=== PATIENT | male | born 1940 | race Caucasian/White ===

== ENCOUNTER → 2017-04-09 | Outpatient (CLI) | payer BC ==
[2015-10-03 11:45] VITALS: BP 156/82
[~2017-04-09] MED LIST: LOSA100T6 PO; TAMS0.4C97 PO
--- NOTE | 2017-04-09 15:26 | KCIC ---
HIP RIGHT 2 VIEW Indication: Right hip pain for 2 weeks. . Comparison: No comparison is available. FINDINGS: No acute fracture. No bone destruction. No dislocation. Mild subchondral sclerosis at the pubic symphysis could be degenerative or related osteitis pubis. IMPRESSION: No acute fracture or dislocation. Electronically signed by: Michael Corral MD (04/09/2017 3:23 PM) [facility]
--- NOTE | 2017-04-09 15:30 | KCIC ---
LUMBAR SPINE 2-3V Indication: Low back pain. Dropped foot for 2 weeks. . Comparison: No comparison is available. FINDINGS: Degenerative disc disease with marginal spurring and loss of disc height, greatest at L2-3, L4-5 and L5-S1. There appear to be 5 lumbar type nonrib-bearing vertebral bodies. Mild anterior subluxation of L3 on L4 and mild left lateral subluxation of L2 on L3, likely degenerative. No evidence of acute fracture or aggressive bone destruction. Surgical clips identified in the right abdomen. IMPRESSION: Lumbar spondylosis. No evidence of acute fracture. Electronically signed by: Michael Corral MD (04/09/2017 3:27 PM) [facility]
== END | disposition home or self-care (01) ==
LOC: KCIC 14:15
PROVIDERS: ATTEND Nurse Practitioner Family
DX: M21.372 Foot drop, left foot (principal); M47.896 Other spondylosis, lumbar region; M51.36 Other intervertebral disc degeneration, lumbar region; M51.37 Other intervertebral disc degeneration, lumbosacral region; M25.551 Pain in right hip
CPT/HCPCS: 72100; 73502

== ENCOUNTER → 2017-11-07 | Outpatient (CLI) | payer BC | END | disposition home or self-care (01) | LOC: RT 11:33 | DX: I10 Essential (primary) hypertension (principal); E78.5 Hyperlipidemia, unspecified; E78.00 Pure hypercholesterolemia, unspecified; J44.9 Chronic obstructive pulmonary disease, unspecified; K21.9 Gastro-esophageal reflux disease without esophagitis | CPT/HCPCS: 94618 ==

== ENCOUNTER 2019-10-13 14:44 | Inpatient (IN) | payer OTHER, MEDICAID ==
[~2019-10-13] VITALS: Ht 184.2 cm; Wt 96.1 kg
[~2019-10-13 14:44] MED LIST changes: +Aspirin PO; +Flomax PO; +LOSA100T14 PO; -LOSA100T6 PO; +Losartan PO; +Ranitidine PO; +Vitamin PO
--- NOTE | 2019-10-13 15:12 | PHYS DOC ---
Past Medical History Past Medical History: COPD, High Cholesterol, Hypertension Past Surgical History: Tonsillectomy Smoking Status: Never Smoker Alcohol Use: Heavy Drug Use: None General Adult EDM: Chief Complaint: CHEST PAIN HPI: HPI: 79-year-old male significant history of hypertension, hyperlipidemia, who presents for evaluation of chest pain. The patient reports onset of chest pain with exertion while weed eating his yard just prior to arrival. The patient rested and his chest pain improved. He again exert himself, resulting in recurrent chest pain, again resolved with rest. Associated mild dyspnea. No known history of coronary artery disease or prior history of thromboembolic disease. Review of Systems: Review of Systems: Gen: No fever, chills. Eyes: No blurred vision, diplopia. ENT: No nasal congestion, sore throat. CV: Reports chest pain. Resp. No cough. Reports dyspnea. GI: No abd pain, N/V. : No dysuria, hematuria. Neuro: No CASTRO, dizziness, weakness. MSK: No myalgia, arthralgia, back pain. Skin: No acute rash or lesion. Heart Score: HEART Score for Chest Pain: HEART Score for Chest Pain Response (Comments) Value History Highly Suspicious 2 ECG Normal 0 Age > 65 2 Risk Factors >3 Risk Factors or Hx CAD 2 Troponin < Normal Limit 0 Total 6 Risk Factors: Risk Factors: DM, Current or recent (<one month) smoker, HTN, HLP, family history of CAD, obesity. Risk Scores: Score 0 - 3: 2.5% MACE over next 6 weeks - Discharge Home Score 4 - 6: 20.3% MACE over next 6 weeks - Admit for Clinical Observation Score 7 - 10: 72.7% MACE over next 6 weeks - Early Invasive Strategies Allergies: Allergies: Allergies Coded Allergies Type Severity Reaction Last Updated Verified No Known Drug Allergies 09/30/15 No Physical Exam: PE: Gen: NAD. Head: NC/AT. Eyes: No scleral icterus. No conjunctival injection. ENT: MMM. Posterior OP clear. Neck: Supple. NT. No JVD. CV: RRR. Peripheral pulses intact. Resp: CTAB. Abd: Soft. NT. ND. MSK: No peripheral cyanosis. No edema. No calf tenderness or asymmetry. Neuro: Awake and alert. Skin. Warm. Dry. Psych: Appropriate mood & affect. Current Patient Data: Labs: Laboratory Tests Test 10/13/19 15:02 White Blood Count 9.3 x10^3/uL (4.0-11.0) Red Blood Count 4.37 x10^6/uL (4.30-5.70) Hemoglobin 15.2 g/dL (13.0-17.5) Hematocrit 42.9 % (39.0-53.0) Mean Corpuscular Volume 98 fL (79-100) Mean Corpuscular Hemoglobin 35 pg (25-35) Mean Corpuscular Hemoglobin Concent 35 g/dL (31-37) Red Cell Distribution Width 13.5 % (11.5-14.5) Platelet Count 238 x10^3/uL (140-400) Neutrophils (%) (Auto) 66 % (31-73) Lymphocytes (%) (Auto) 25 % (24-48) Monocytes (%) (Auto) 8 % (0-9) Eosinophils (%) (Auto) 1 % (0-3) Basophils (%) (Auto) 1 % (0-3) Neutrophils # (Auto) 6.2 x10^3/uL (1.8-7.7) Lymphocytes # (Auto) 2.3 x10^3/uL (1.0-4.8) Monocytes # (Auto) 0.7 x10^3/uL (0.0-1.1) Eosinophils # (Auto) 0.1 x10^3/uL (0.0-0.7) Basophils # (Auto) 0.1 x10^3/uL (0.0-0.2) Prothrombin Time 13.9 SEC (11.7-14.0) Prothromb Time International Ratio 1.1 (0.8-1.1) Activated Partial Thromboplast Time 25 SEC (24-38) Sodium Level 138 mmol/L (136-145) Chloride Level 104 mmol/L (98-107) Carbon Dioxide Level 27 mmol/L (21-32) Anion Gap 7 (6-14) Blood Urea Nitrogen 21 mg/dL (8-26) Estimated GFR (Cockcroft-Gault) 64.4 BUN/Creatinine Ratio 19 (6-20) Glucose Level 93 mg/dL (70-99) Calcium Level 8.7 mg/dL (8.5-10.1) Total Bilirubin 0.4 mg/dL (0.2-1.0) Aspartate Amino Transf (AST/SGOT) 25 U/L (15-37) Alkaline Phosphatase 53 U/L (46-116) Troponin I Quantitative < 0.017 ng/mL (0.000-0.055) Total Protein 6.9 g/dL (6.4-8.2) Albumin 3.4 g/dL (3.4-5.0) Albumin/Globulin Ratio 1.0 (1.0-1.7) EKG: EKG: [] EKG at 1448. Sinus rhythm. Heart rate 58. Incomplete right bundle branch block morphology. Diffuse nonspecific STT changes. No STEMI. Interpreted by me. Radiology/Procedures: Radiology/Procedures: Examination: PORTABLE CHEST 1V History: Reason: CP / Spl. Instructions: / History: Comparison/Correlation: 09/30/2015 portable chest x-ray exam Findings: Portable upright frontal view chest was obtained. Heart size and vasculature are normal. No pneumothorax. Minimal interstitial thickening at the lung bases noted. No dense consolidation. Bony structures are unremarkable. Impression: No focal infiltrate. No significant change. Electronically signed by: German Craig MD (10/13/2019 3:25 PM) [id number] Course & Med Decision Making: Course & Med Decision Making Pertinent Labs and Imaging studies reviewed. (See chart for details) In summary, 79M with PMH of HTN, HL, p/w exertional CP x2, improved with rest. Remains CP free. EKG without acute injury pattern. Labs unrevealing. Initial trop neg. 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 Remains HDS. Will admit obs tele. Dragon Disclaimer: Draglayla Disclaimer: This electronic medical record was generated, in whole or in part, using a voice recognition dictation system. Departure Departure Impression: Primary Impression: Chest pain Disposition: ADMITTED INPATIENT Admitting Physician: ELI (Jinny) Condition: STABLE Referrals: APRIL MARTINEZ MD (PCP) Justicifation of Admission Dx: Justifications for Admission: Justification of Admission Dx: Yes Angina: New-Onset THANGDONNA DO Oct 13, 2019 15:12
[2019-10-13] MEDS ORDERED: NITROGLYCERIN OINT 1 GM PACKET. TP ONE (15:15)
[2019-10-13 15:22] LABS: BASO # 0.1 x10^3/uL (0.0-0.2); BASO % 1 % (0-3); EOS # 0.1 x10^3/uL (0.0-0.7); EOS % 1 % (0-3); HEMATOCRIT 42.9 % (39.0-53.0); HEMOGLOBIN 15.2 g/dL (13.0-17.5); LYMPH # 2.3 x10^3/uL (1.0-4.8); LYMPH % 25 % (24-48); MEAN CORPUSCULAR HEMOGLOBIN 35 pg (25-35); MEAN CORPUSCULAR HGB CONC 35 g/dL (31-37); MEAN CORPUSCULAR VOLUME 98 fL (79-100); MONO # 0.7 x10^3/uL (0.0-1.1); MONO % 8 % (0-9); NEUT # 6.2 x10^3/uL (1.8-7.7); NEUT % 66 % (31-73); PLATELET COUNT 238 x10^3/uL (140-400); RED BLOOD COUNT 4.37 x10^6/uL (4.30-5.70); RED CELL DISTRIBUTION WIDTH 13.5 % (11.5-14.5); WHITE BLOOD COUNT 9.3 x10^3/uL (4.0-11.0)
--- NOTE | 2019-10-13 15:28 | RAD ---
Examination: PORTABLE CHEST 1V History: Reason: CP / Spl. Instructions: / History: Comparison/Correlation: 09/30/2015 portable chest x-ray exam Findings: Portable upright frontal view chest was obtained. Heart size and vasculature are normal. No pneumothorax. Minimal interstitial thickening at the lung bases noted. No dense consolidation. Bony structures are unremarkable. Impression: No focal infiltrate. No significant change. Electronically signed by: German Craig MD (10/13/2019 3:25 PM) [email or web address]
[2019-10-13 15:32] LABS: PROTHROMBIN TIME PATIENT 13.9 SEC (11.7-14.0)
[2019-10-13 15:33] LABS: CALCIUM 8.7 mg/dL (8.5-10.1); CREATININE 1.1 mg/dL (0.7-1.3); GFR 64.4
[2019-10-13 15:39] LABS: ALBUMIN 3.4 g/dL (3.4-5.0); MAGNESIUM 1.7 mg/dL (1.8-2.4); TOTAL BILIRUBIN 0.4 mg/dL (0.2-1.0); TOTAL PROTEIN 6.9 g/dL (6.4-8.2)
--- NOTE | 2019-10-13 15:55 | EKG ---
[facility] [address] [place] [address] Test Date: 2019-10-13 Test Time: 14:48:11 Pat Name: ASHA ARITA Department: Room: Gender: M Special Needs Babysitter: : 1940 Requested By: DONNA DESIR Order Number: [id number] Reading MD: Jorge Alberto Sharp Measurements Intervals [place] Rate: 58 P: -11 DC: 196 QRS: -62 QRSD: 114 T: -1 QT: 452 QTc: 448 Interpretive Statements SINUS RHYTHM ABNORMAL LEFT AXIS DEVIATION S1,S2,S3 PATTERN LEFT ANTERIOR FASCICULAR BLOCK CONSIDER RIGHT VENTRICULAR HYPERTROPHY Electronically Signed On 10-15-2019 16:28:43 CDT by Jorge Alberto Sharp
[2019-10-13] MEDS ORDERED: ONDANSETRON PF 4 MG/2 ML VIAL. IV PRN ×2 (16:15→18:30)
--- NOTE | 2019-10-13 16:28 | PDOC1 ---
History and Physical Date of Admission Date of Admission DATE: 10/13/19 TIME: 16:12 Identification/Chief Complaint Chief Complaint Dyspnea Source Source: Patient History of Present Illness History of Present Illness Mr Garces is an 79 yo M w/ PMHx COPD, High Cholesterol, Hypertension who arrives via EMS for c/o chest pain. Pain is substernal, does not radiate. Rated 6 out of 10 constant pressure. The patient reports onset of chest pain with exertion while weed eating his yard just prior to arrival. The patient rested and his chest pain improved. He again exert himself, resulting in recurrent chest pain, again resolved with rest. Associated mild dyspnea. Given ASA 324mg by EMS. On further ROS his dyspnea has been present for 6 to 8 months. He was actually seen 2 weeks ago for a voice change. He was referred to ENT physician. He has yet to go because his driving privileges have temporarily been revoked due to a DUI, he still drinks 4-5 beers daily regularly. He tells me he is more concerned about his lungs he thinks he has asbestosis. He did work construction for quite a long time. He notes during examination that shortly after nitropaste administration he felt his feet were not cold for the first time in years. EKG at 1448. Sinus rhythm. Heart rate 58. Incomplete right bundle branch block morphology. Diffuse nonspecific STT changes. No STEMI. CXR - inte rstitial thickening at lung bases noted, no acute abnormality Mg 1.7, troponin negative initially. Admitted for further treatment given his anginal symptoms improved by rest and NTG. Past Medical History Cardiovascular: HTN, Hyperlipidemia Pulmonary: COPD Past Surgical History Past Surgical History: Appendectomy, Cholecystectomy, Tonsillectomy Family History Family History: Chronic Bronchitis, High Cholestrol, Hypertension Social History Smoke: No ALCOHOL: heavy Drugs: None Current Medications Current Medications Current Medications Nitroglycerin (Nitro-Bid Oint) 1 inch 1X ONCE TP Last administered on 10/13/19at 15:26; Start 10/13/19 at 15:15; Stop 10/13/19 at 15:16; Status DC Ondansetron HCl (Zofran) 4 mg PRN Q8HRS PRN IV NAUSEA/VOMITING; Start 10/13/19 at 16:15; Stop 10/14/19 at 16:14 Active Scripts Active Reported Flomax (Tamsulosin Hcl) 0.4 Mg Cap.er.24h 0.4 Mg PO DAILY LAST DOSE: 10/02/15 BEDTIME NEXT DOSE: 10/03/15 BEDTIME Losartan Potassium 100 Mg Tablet 100 Mg PO DAILY LAST DOSE: 10/03/15 AM NEXT DOSE: 10/04/15 AM [Ranitidine] 150 150 Mg PO BID [Flomax] 0.4 0.4 Mg PO DAILY [Losartan] 100 100 Mg PO DAILY [Vitamin] one 1 Tab PO DAILY [Aspirin] 325 325 Mg PO DAILY Allergies Allergies: Coded Allergies: No Known Drug Allergies (Unverified , 09/30/15) ROS General: YES: Fatigue, Malaise; No: Chills, Night Sweats, Appetite, Other PSYCHOLOGICAL ROS: No: Anxiety, Behavioral Disorder, Concentration difficultie, Decreased libido, Depression, Disorientation, Hallucinations, Hostility, Irritablity, Memory difficulties, Mood Swings, Obsessive thoughts, Physical abuse, Sexual abuse, Sleep disturbances, Suicidal ideation, Other Eyes: No Blurry vision, No Decreased vision, No Double vision, No Dry eyes, No Excessive tearing, No Eye Pain, No Itchy Eyes, No Loss of vision, No Photophobia, No Scotomata, No Uses contacts, No Uses glasses, No Other HEENT: No: Heacaches, Visual Changes, Hearing change, Nasal congestion, Nasal discharge, Oral lesions, Sinus pain, Sore Throat, Epistaxis, Sneezing, Snoring, Tinnitus, Vertigo, Vocal changes, Other ALLERGY AND IMMUNOLOGY: No: Hives, Insect Bite Sensitivity, Itchy/Watery Eyes, Nasal Congestion, Post Nasal Drip, Seasonal Allergies, Other Hematological and Lymphatic: No: Bleeding Problems, Blood Clots, Blood Transfusions, Brusing, Night Sweats, Pallor, Swollen Lymph Nodes, Other ENDOCRINE: No: Breast Changes, Galactorrhea, Hair Pattern Changes, Hot Flashes, Malaise/lethargy, Mood Swings, Palpitations, Polydipsia/polyuria, Skin Changes, Temperature Intolerance, Unexpected Weight Changes, Other Breast: No New/Changing Breast Lumps, No Nipple changes, No Nipple discharge, No Other Respiratory: YES: Cough, Shortness of breath, SOB with excertion; No: Hemoptysis, Orthopnea, Pleuritic Pain, Sputum Changes, Stridor, Tachypnea, Wheezing, Other Cardiovascular: yes Chest Pain; No Palpitations, No Orthopnea, No Paroxysmal Noc. Dyspnea, No Edema, No Lt Headedness, No Other Gastrointestinal: No Nausea, No Vomiting, No Abdominal Pain, No Diarrhea, No Constipation, No Melena, No Hematochezia, No Other Genitourinary: No Dysuria, No Frequency, No Incontinence, No Hematuria, No Retention, No Discharge, No Urgency, No Pain, No Flank Pain, No Other, No , No , No , No , No , No , No Musculoskeletal: No Gait Disturbance, No Joint Pain, No Joint Stiffness, No Joint Swelling, No Muscle Pain, No Muscular Weakness, No Pain In:, No Swelling In:, No Other Neurological: No Behavorial Changes, No Bowel/Bladder ControlChng, No Confusion, No Dizziness, No Gait Disturbance, No Headaches, No Impaired Coord/balance, No Memory Loss, No Numbness/Tingling, No Seizures, No Speech Problems, No Tremors, No Visual Changes, No Weakness, No Other Skin: No Dry Skin, No Eczema, No Hair Changes, No Lumps, No Mole Changes, No Mottling, No Nail Changes, No Pruritus, No Rash, No Skin Lesion Changes, No Other, No Acne Physical Exam General: Alert, Oriented X3, Cooperative, mild distress HEENT: Atraumatic, PERRLA, EOMI, Mucous membr. moist/pink Lungs: Clear to auscultation, Normal air movement, Other (Slight basilar wheezing) Heart: S1S2, RRR, no thrills, no rubs, no gallops, no murmurs Abdomen: Normal bowel sounds, Soft, No tenderness, No hepatosplenomegaly, No masses Rectal Exam: not examined Extremities: No clubbing, No cyanosis, No edema, Normal pulses, No tenderness/swelling Skin: No rashes, No breakdown, No significant lesion Neuro: Normal gait, Normal speech, Strength at 5/5 X4 ext, Normal tone, Sen sation intact, Cranial nerves 3-12 NL, Reflexes 2+ Psych/Mental Status: Mental status NL, Mood NL Vitals Vitals Vital Signs Date Time Temp Pulse Resp B/P (MAP) Pulse Ox O2 Delivery O2 Flow Rate FiO2 10/13/19 15:49 54 20 123/63 (83) 98 Room Air 10/13/19 14:45 98.4 98.4 Labs Labs Laboratory Tests Test 10/13/19 15:02 White Blood Count 9.3 x10^3/uL (4.0-11.0) Red Blood Count 4.37 x10^6/uL (4.30-5.70) Hemoglobin 15.2 g/dL (13.0-17.5) Hematocrit 42.9 % (39.0-53.0) Mean Corpuscular Volume 98 fL (79-100) Mean Corpuscular Hemoglobin 35 pg (25-35) Mean Corpuscular Hemoglobin Concent 35 g/dL (31-37) Red Cell Distribution Width 13.5 % (11.5-14.5) Platelet Count 238 x10^3/uL (140-400) Neutrophils (%) (Auto) 66 % (31-73) Lymphocytes (%) (Auto) 25 % (24-48) Monocytes (%) (Auto) 8 % (0-9) Eosinophils (%) (Auto) 1 % (0-3) Basophils (%) (Auto) 1 % (0-3) Neutrophils # (Auto) 6.2 x10^3/uL (1.8-7.7) Lymphocytes # (Auto) 2.3 x10^3/uL (1.0-4.8) Monocytes # (Auto) 0.7 x10^3/uL (0.0-1.1) Eosinophils # (Auto) 0.1 x10^3/uL (0.0-0.7) Basophils # (Auto) 0.1 x10^3/uL (0.0-0.2) Prothrombin Time 13.9 SEC (11.7-14.0) Prothromb Time International Ratio 1.1 (0.8-1.1) Activated Partial Thromboplast Time 25 SEC (24-38) Sodium Level 138 mmol/L (136-145) Potassium Level 4.0 mmol/L (3.5-5.1) Chloride Level 104 mmol/L (98-107) Carbon Dioxide Level 27 mmol/L (21-32) Anion Gap 7 (6-14) Blood Urea Nitrogen 21 mg/dL (8-26) Creatinine 1.1 mg/dL (0.7-1.3) Estimated GFR (Cockcroft-Gault) 64.4 BUN/Creatinine Ratio 19 (6-20) Glucose Level 93 mg/dL (70-99) Calcium Level 8.7 mg/dL (8.5-10.1) Magnesium Level 1.7 mg/dL (1.8-2.4) Total Bilirubin 0.4 mg/dL (0.2-1.0) Aspartate Amino Transf (AST/SGOT) 25 U/L (15-37) Alanine Aminotransferase (ALT/SGPT) 37 U/L (16-63) Alkaline Phosphatase 53 U/L (46-116) Troponin I Quantitative < 0.017 ng/mL (0.000-0.055) KN-[id number]-B-Type Natriuretic Peptide 151 pg/mL (0-449) Total Protein 6.9 g/dL (6.4-8.2) Albumin 3.4 g/dL (3.4-5.0) Albumin/Globulin Ratio 1.0 (1.0-1.7) Laboratory Tests Test 10/13/19 15:02 White Blood Count 9.3 x10^3/uL (4.0-11.0) Red Blood Count 4.37 x10^6/uL (4.30-5.70) Hemoglobin 15.2 g/dL (13.0-17.5) Hematocrit 42.9 % (39.0-53.0) Mean Corpuscular Volume 98 fL (79-100) Mean Corpuscular Hemoglobin 35 pg (25-35) Mean Corpuscular Hemoglobin Concent 35 g/dL (31-37) Red Cell Distribution Width 13.5 % (11.5-14.5) Platelet Count 238 x10^3/uL (140-400) Neutrophils (%) (Auto) 66 % (31-73) Lymphocytes (%) (Auto) 25 % (24-48) Monocytes (%) (Auto) 8 % (0-9) Eosinophils (%) (Auto) 1 % (0-3) Basophils (%) (Auto) 1 % (0-3) Neutrophils # (Auto) 6.2 x10^3/uL (1.8-7.7) Lymphocytes # (Auto) 2.3 x10^3/uL (1.0-4.8) Monocytes # (Auto) 0.7 x10^3/uL (0.0-1.1) Eosinophils # (Auto) 0.1 x10^3/uL (0.0-0.7) Basophils # (Auto) 0.1 x10^3/uL (0.0-0.2) Prothrombin Time 13.9 SEC (11.7-14.0) Prothromb Time International Ratio 1.1 (0.8-1.1) Activated Partial Thromboplast Time 25 SEC (24-38) Sodium Level 138 mmol/L (136-145) Potassium Level 4.0 mmol/L (3.5-5.1) Chloride Level 104 mmol/L (98-107) Carbon Dioxide Level 27 mmol/L (21-32) Anion Gap 7 (6-14) Blood Urea Nitrogen 21 mg/dL (8-26) Creatinine 1.1 mg/dL (0.7-1.3) Estimated GFR (Cockcroft-Gault) 64.4 BUN/Creatinine Ratio 19 (6-20) Glucose Level 93 mg/dL (70-99) Calcium Level 8.7 mg/dL (8.5-10.1) Magnesium Level 1.7 mg/dL (1.8-2.4) Total Bilirubin 0.4 mg/dL (0.2-1.0) Aspartate Amino Transf (AST/SGOT) 25 U/L (15-37) Alanine Aminotransferase (ALT/SGPT) 37 U/L (16-63) Alkaline Phosphatase 53 U/L (46-116) Troponin I Quantitative < 0.017 ng/mL (0.000-0.055) TE-Kcs-J-Type Natriuretic Peptide 151 pg/mL (0-449) Total Protein 6.9 g/dL (6.4-8.2) Albumin 3.4 g/dL (3.4-5.0) Albumin/Globulin Ratio 1.0 (1.0-1.7) Images Images CXR: Portable upright frontal view chest was obtained. Heart size and vasculature are normal. No pneumothorax. Minimal interstitial thickening at the lung bases noted. No dense consolidation. Bony structures are unremarkable. Impression: No focal infiltrate. No significant change. VTE Prophylaxis Ordered VTE Prophylaxis Devices: Yes VTE Pharmacological Prophylaxi: Yes Assessment/Plan Assessment/Plan A/P: Chest pain - no STEMI, negative troponin, but concerning for resolution with rest and NTG for angina. Will cont ASA, consult cardiology. trend troponins, telemetry. NTG prn Dyspnea on exertion - with asbestos exposure history and prior dx of COPD this could be pulmonary related but given his chest pain and improvement with NTG this is just as likely an anginal equivalent COPD - had spirometry, thinks he was told he has more a restrictive pattern. he is concerned about history of asbestos exposure, thinks his dad of mesothelioma High Cholesterol - cont statin, check lipids to risk stratify Hypertension - will cont meds. Monitor HR Hypoimagnesemia - will replace IV Heavy ETOH use - will place on CIWA. Has h/o DUI recently, would not order ETOH in house for history of reckless alcohol use FEN - Cardiac diet PPX - lovenox FULL CODE Dispo - inpatient 2 midnights Justicifation of Admission Dx: Justifications for Admission: Justification of Admission Dx: Yes Angina: [place] Worsening of Sym NATY ARIAS MD Oct 13, 2019 16:28
[2019-10-13 17:15] VITALS: BP 153/79
[2019-10-13] MEDS ORDERED: IBUP400T99 PO (18:17)
[2019-10-13] MEDS ORDERED: ASPI-612 PO (18:17)
[2019-10-13] MEDS ORDERED: MONT10TA49 PO (18:17)
[2019-10-13] MEDS ORDERED: HYDR12.58 PO (18:17)
[2019-10-13] MEDS ORDERED: ALBUTEROL SULFATE 2.5 MG/3 ML NEBU. NEB PRN (18:30)
[2019-10-13] MEDS ORDERED: guaiFENesin ORAL 200 MG/10 ML LIQUID. PO PRN (18:30)
[2019-10-13] MEDS ORDERED: ACETAMINOPHEN 325 MG TABLET. PO PRN (18:30)
[2019-10-13 19:00] VITALS: BP 132/78
[2019-10-13] MEDS ORDERED: MAGNESIUM SULFATE 2GM 50 ML IV ONE (20:00)
[2019-10-13] MEDS ORDERED: IPRATRPIUM/ALBUTEROL 0.5/2.5MG 3 ML NEBU. NEB SCH (21:00)
[2019-10-13] MEDS: ASPIRIN ENTERIC COATED 81 MG TABLET.DR. PO SCH (21:12)
[2019-10-13] MEDS: MONTELUKAST SODIUM 10 MG TABLET. PO SCH (21:12)
[2019-10-13] MEDS: ENOXAPARIN 40 MG/0.4 ML SYRINGE. SQ SCH (21:13)
[2019-10-13] MEDS ORDERED: LORazepam 1 MG TABLET PO PRN (21:15)
[2019-10-13 22:42] VITALS: BP 108/54
[2019-10-13] MEDS: NITROGLYCERIN OINT 1 GM PACKET. TP SCH (23:25)
--- NOTE | 2019-10-13 23:26 | NUR ---
Pt denies cp at this time, Pt hr 41 will continue to monitor pt.
[2019-10-14] VITALS (14 sets, daily range): BP systolic 106–156; BP diastolic 41–79
[2019-10-14 05:35] LABS: CALCIUM 8.1 mg/dL (8.5-10.1); GFR 71.9; POTASSIUM 3.8 mmol/L (3.5-5.1)
[2019-10-14 05:42] LABS: CHOLESTEROL/HDL RATIO 2.9
[2019-10-14] MEDS: NITROGLYCERIN OINT 1 GM PACKET. TP SCH ×4 (06:16→22:51)
[2019-10-14] MEDS ORDERED: IOHEXOL 300 MG/ML 100ML VIAL. ONE (08:23)
--- NOTE | 2019-10-14 08:28 | PDOC ---
PROGRESS NOTES Chief Complaint Chief Complaint A/P: Chest pain - no STEMI, negative troponin, but concerning for resolution with rest and NTG for angina. Will cont ASA, consult cardiology. trend troponins, telemetry. NTG prn Dyspnea on exertion - with asbestos exposure history and prior dx of COPD this could be pulmonary related but given his chest pain and improvement with NTG this is just as likely an anginal equivalent COPD - had spirometry, thinks he was told he has more a restrictive pattern. he is concerned about history of asbestos exposure, thinks his dad of mesothelioma High Cholesterol - cont statin, check lipids to risk stratify Hypertension - will cont meds. Monitor HR Hypoimagnesemia - will replace IV Heavy ETOH use - will place on CIWA. Has h/o DUI recently, would not order ETOH in house for history of reckless alcohol use FEN - Cardiac diet PPX - lovenox FULL CODE Dispo - inpatient 2 midnights History of Present Illness History of Present Illness Mr Garces is an 79 yo M w/ PMHx COPD, High Cholesterol, Hypertension who arrives via EMS for c/o chest pain. Pain is substernal, does not radiate. Rated 6 out of 10 constant pressure. The patient reports onset of chest pain with exertion while weed eating his yard just prior to arrival. The patient rested and his chest pain improved. He again exert himself, resulting in recurrent chest pain, again resolved with rest. Associated mild dyspnea. Given ASA 324mg by EMS. On further ROS his dyspnea has been present for 6 to 8 months. He was actually seen 2 weeks ago for a voice change. He was referred to ENT physician. He has yet to go because his driving privileges have temporarily been revoked due to a DUI, he still drinks 4-5 beers daily regularly. He tells me he is more concerned about his lungs he thinks he has asbestosis. He did work construction for quite a long time. He notes during examination that shortly after nitropaste administration he felt his feet were not cold for the first time in years. EKG at 1448. Sinus rhythm. Heart rate 58. Incomplete right bundle branch block morphology. Diffuse nonspecific STT changes. No STEMI. CXR - interstitial thickening at lung bases noted, no acute abnormality Mg 1.7, troponin negative initially. Admitted for further treatment given his anginal symptoms improved by rest and NTG. Bradycardic overnight, plans for coronary angiography based on this. He still has dyspnea and hoarseness today. Some back pain. Vitals Vitals Vital Signs Date Time Temp Pulse Resp B/P (MAP) Pulse Ox O2 Delivery O2 Flow Rate FiO2 10/14/19 07:17 97.6 44 18 131/69 (89) 97 Room Air 97.6 Physical Exam General: Alert, Oriented X3, Cooperative, mild distress Lungs: Clear Abdomen: Normal bowel sounds, Soft, No tenderness, No hepatosplenomegaly, No masses Extremities: No clubbing, No cyanosis, No edema, Normal pulses, No tenderness/swelling Skin: No rashes, No breakdown, No significant lesion Labs LABS Laboratory Tests Test 10/13/19 15:02 10/13/19 18:50 10/13/19 22:00 10/14/19 03:45 White Blood Count 9.3 x10^3/uL (4.0-11.0) Red Blood Count 4.37 x10^6/uL (4.30-5.70) Hemoglobin 15.2 g/dL (13.0-17.5) Hematocrit 42.9 % (39.0-53.0) Mean Corpuscular Volume 98 fL (79-100) Mean Corpuscular Hemoglobin 35 pg (25-35) Mean Corpuscular Hemoglobin Concent 35 g/dL (31-37) Red Cell Distribution Width 13.5 % (11.5-14.5) Platelet Count 238 x10^3/uL (140-400) Neutrophils (%) (Auto) 66 % (31-73) Lymphocytes (%) (Auto) 25 % (24-48) Monocytes (%) (Auto) 8 % (0-9) Eosinophils (%) (Auto) 1 % (0-3) Basophils (%) (Auto) 1 % (0-3) Neutrophils # (Auto) 6.2 x10^3/uL (1.8-7.7) Lymphocytes # (Auto) 2.3 x10^3/uL (1.0-4.8) Monocytes # (Auto) 0.7 x10^3/uL (0.0-1.1) Eosinophils # (Auto) 0.1 x10^3/uL (0.0-0.7) Basophils # (Auto) 0.1 x10^3/uL (0.0-0.2) Prothrombin Time 13.9 SEC (11.7-14.0) Prothromb Time International Ratio 1.1 (0.8-1.1) Activated Partial Thromboplast Time 25 SEC (24-38) Sodium Level 138 mmol/L (136-145) 139 mmol/L (136-145) Potassium Level 4.0 mmol/L (3.5-5.1) 3.8 mmol/L (3.5-5.1) Chloride Level 104 mmol/L (98-107) 105 mmol/L (98-107) Carbon Dioxide Level 27 mmol/L (21-32) 24 mmol/L (21-32) Anion Gap 7 (6-14) 10 (6-14) Blood Urea Nitrogen 21 mg/dL (8-26) 20 mg/dL (8-26) Creatinine 1.1 mg/dL (0.7-1.3) 1.0 mg/dL (0.7-1.3) Estimated GFR (Cockcroft-Gault) 64.4 71.9 BUN/Creatinine Ratio 19 (6-20) Glucose Level 93 mg/dL (70-99) 94 mg/dL (70-99) Calcium Level 8.7 mg/dL (8.5-10.1) 8.1 mg/dL (8.5-10.1) Magnesium Level 1.7 mg/dL (1.8-2.4) 2.0 mg/dL (1.8-2.4) Total Bilirubin 0.4 mg/dL (0.2-1.0) Aspartate Amino Transf (AST/SGOT) 25 U/L (15-37) Alanine Aminotransferase (ALT/SGPT) 37 U/L (16-63) Alkaline Phosphatase 53 U/L (46-116) Troponin I Quantitative < 0.017 ng/mL (0.000-0.055) < 0.017 ng/mL (0.000-0.055) < 0.017 ng/mL (0.000-0.055) TS-Gmn-I-Type Natriuretic Peptide 151 pg/mL (0-449) Total Protein 6.9 g/dL (6.4-8.2) Albumin 3.4 g/dL (3.4-5.0) Albumin/Globulin Ratio 1.0 (1.0-1.7) Thyroid Stimulating Hormone (TSH) 2.154 uIU/mL (0.358-3.74) Triglycerides Level 129 mg/dL (0-150) Cholesterol Level 111 mg/dL (0-200) LDL Cholesterol, Calculated 47 mg/dL (0-100) VLDL Cholesterol, Calculated 26 mg/dL (0-40) Non-HDL Cholesterol Calculated 73 mg/dL (0-129) HDL Cholesterol 38 mg/dL (40-60) Cholesterol/HDL Ratio 2.9 Assessment and Plan Assessmemt and Plan Problems Medical Problems: (1) Chest pain Status: Acute Comment Review of Relevant I have reviewed the following items alisson (where applicable) has been applied. Labs Laboratory Tests Test 10/13/19 15:02 10/13/19 18:50 10/13/19 22:00 10/14/19 03:45 White Blood Count 9.3 x10^3/uL (4.0-11.0) Red Blood Count 4.37 x10^6/uL (4.30-5.70) Hemoglobin 15.2 g/dL (13.0-17.5) Hematocrit 42.9 % (39.0-53.0) Mean Corpuscular Volume 98 fL (79-100) Mean Corpuscular Hemoglobin 35 pg (25-35) Mean Corpuscular Hemoglobin Concent 35 g/dL (31-37) Red Cell Distribution Width 13.5 % (11.5-14.5) Platelet Count 238 x10^3/uL (140-400) Neutrophils (%) (Auto) 66 % (31-73) Lymphocytes (%) (Auto) 25 % (24-48) Monocytes (%) (Auto) 8 % (0-9) Eosinophils (%) (Auto) 1 % (0-3) Basophils (%) (Auto) 1 % (0-3) Neutrophils # (Auto) 6.2 x10^3/uL (1.8-7.7) Lymphocytes # (Auto) 2.3 x10^3/uL (1.0-4.8) Monocytes # (Auto) 0.7 x10^3/uL (0.0-1.1) Eosinophils # (Auto) 0.1 x10^3/uL (0.0-0.7) Basophils # (Auto) 0.1 x10^3/uL (0.0-0.2) Prothrombin Time 13.9 SEC (11.7-14.0) Prothromb Time International Ratio 1.1 (0.8-1.1) Activated Partial Thromboplast Time 25 SEC (24-38) Sodium Level 138 mmol/L (136-145) 139 mmol/L (136-145) Potassium Level 4.0 mmol/L (3.5-5.1) 3.8 mmol/L (3.5-5.1) Chloride Level 104 mmol/L (98-107) 105 mmol/L (98-107) Carbon Dioxide Level 27 mmol/L (21-32) 24 mmol/L (21-32) Anion Gap 7 (6-14) 10 (6-14) Blood Urea Nitrogen 21 mg/dL (8-26) 20 mg/dL (8-26) Creatinine 1.1 mg/dL (0.7-1.3) 1.0 mg/dL (0.7-1.3) Estimated GFR (Cockcroft-Gault) 64.4 71.9 BUN/Creatinine Ratio 19 (6-20) Glucose Level 93 mg/dL (70-99) 94 mg/dL (70-99) Calcium Level 8.7 mg/dL (8.5-10.1) 8.1 mg/dL (8.5-10.1) Magnesium Level 1.7 mg/dL (1.8-2.4) 2.0 mg/dL (1.8-2.4) Total Bilirubin 0.4 mg/dL (0.2-1.0) Aspartate Amino Transf (AST/SGOT) 25 U/L (15-37) Alanine Aminotransferase (ALT/SGPT) 37 U/L (16-63) Alkaline Phosphatase 53 U/L (46-116) Troponin I Quantitative < 0.017 ng/mL (0.000-0.055) < 0.017 ng/mL (0.000-0.055) < 0.017 ng/mL (0.000-0.055) HH-Zvk-O-Type Natriuretic Peptide 151 pg/mL (0-449) Total Protein 6.9 g/dL (6.4-8.2) Albumin 3.4 g/dL (3.4-5.0) Albumin/Globulin Ratio 1.0 (1.0-1.7) Thyroid Stimulating Hormone (TSH) 2.154 uIU/mL (0.358-3.74) Triglycerides Level 129 mg/dL (0-150) Cholesterol Level 111 mg/dL (0-200) LDL Cholesterol, Calculated 47 mg/dL (0-100) VLDL Cholesterol, Calculated 26 mg/dL (0-40) Non-HDL Cholesterol Calculated 73 mg/dL (0-129) HDL Cholesterol 38 mg/dL (40-60) Cholesterol/HDL Ratio 2.9 Laboratory Tests Test 10/13/19 15:02 10/13/19 18:50 10/13/19 22:00 10/14/19 03:45 White Blood Count 9.3 x10^3/uL (4.0-11.0) Red Blood Count 4.37 x10^6/uL (4.30-5.70) Hemoglobin 15.2 g/dL (13.0-17.5) Hematocrit 42.9 % (39.0-53.0) Mean Corpuscular Volume 98 fL (79-100) Mean Corpuscular Hemoglobin 35 pg (25-35) Mean Corpuscular Hemoglobin Concent 35 g/dL (31-37) Red Cell Distribution Width 13.5 % (11.5-14.5) Platelet Count 238 x10^3/uL (140-400) Neutrophils (%) (Auto) 66 % (31-73) Lymphocytes (%) (Auto) 25 % (24-48) Monocytes (%) (Auto) 8 % (0-9) Eosinophils (%) (Auto) 1 % (0-3) Basophils (%) (Auto) 1 % (0-3) Neutrophils # (Auto) 6.2 x10^3/uL (1.8-7.7) Lymphocytes # (Auto) 2.3 x10^3/uL (1.0-4.8) Monocytes # (Auto) 0.7 x10^3/uL (0.0-1.1) Eosinophils # (Auto) 0.1 x10^3/uL (0.0-0.7) Basophils # (Auto) 0.1 x10^3/uL (0.0-0.2) Prothrombin Time 13.9 SEC (11.7-14.0) Prothromb Time International Ratio 1.1 (0.8-1.1) Activated Partial Thromboplast Time 25 SEC (24-38) Sodium Level 138 mmol/L (136-145) 139 mmol/L (136-145) Potassium Level 4.0 mmol/L (3.5-5.1) 3.8 mmol/L (3.5-5.1) Chloride Level 104 mmol/L (98-107) 105 mmol/L (98-107) Carbon Dioxide Level 27 mmol/L (21-32) 24 mmol/L (21-32) Anion Gap 7 (6-14) 10 (6-14) Blood Urea Nitrogen 21 mg/dL (8-26) 20 mg/dL (8-26) Creatinine 1.1 mg/dL (0.7-1.3) 1.0 mg/dL (0.7-1.3) Estimated GFR (Cockcroft-Gault) 64.4 71.9 BUN/Creatinine Ratio 19 (6-20) Glucose Level 93 mg/dL (70-99) 94 mg/dL (70-99) Calcium Level 8.7 mg/dL (8.5-10.1) 8.1 mg/dL (8.5-10.1) Magnesium Level 1.7 mg/dL (1.8-2.4) 2.0 mg/dL (1.8-2.4) Total Bilirubin 0.4 mg/dL (0.2-1.0) Aspartate Amino Transf (AST/SGOT) 25 U/L (15-37) Alanine Aminotransferase (ALT/SGPT) 37 U/L (16-63) Alkaline Phosphatase 53 U/L (46-116) Troponin I Quantitative < 0.017 ng/mL (0.000-0.055) < 0.017 ng/mL (0.000-0.055) < 0.017 ng/mL (0.000-0.055) KN-Kip-D-Type Natriuretic Peptide 151 pg/mL (0-449) Total Protein 6.9 g/dL (6.4-8.2) Albumin 3.4 g/dL (3.4-5.0) Albumin/Globulin Ratio 1.0 (1.0-1.7) Thyroid Stimulating Hormone (TSH) 2.154 uIU/mL (0.358-3.74) Triglycerides Level 129 mg/dL (0-150) Cholesterol Level 111 mg/dL (0-200) LDL Cholesterol, Calculated 47 mg/dL (0-100) VLDL Cholesterol, Calculated 26 mg/dL (0-40) Non-HDL Cholesterol Calculated 73 mg/dL (0-129) HDL Cholesterol 38 mg/dL (40-60) Cholesterol/HDL Ratio 2.9 Medications Current Medications Nitroglycerin (Nitro-Bid Oint) 1 inch 1X ONCE TP Last administered on 10/13/19at 15:26; Start 10/13/19 at 15:15; Stop 10/13/19 at 15:16; Status DC Ondansetron HCl (Zofran) 4 mg PRN Q8HRS PRN IV NAUSEA/VOMITING; Start 10/13/19 at 16:15; Stop 10/13/19 at 18:22; Status DC Ondansetron HCl (Zofran) 4 mg PRN Q4HRS PRN IV NAUSEA/VOMITING; Start 10/13/19 at 18:30 Acetaminophen (Tylenol) 650 mg PRN Q4HRS PRN PO TEMP OVER 100.4F OR MILD PAIN; Start 10/13/19 at 18:30 Albuterol Sulfate (Ventolin Neb Soln) 2.5 mg PRN Q4HRS PRN NEB SHORTNESS OF BREATH; Start 10/13/19 at 18:30 Guaifenesin (Robitussin) 200 mg PRN Q4HRS PRN PO COUGH; Start 10/13/19 at 18:30 Enoxaparin Sodium (Lovenox 40mg Syringe) 40 mg Q24H SQ Last administered on 10/13/19at 21:13; Start 10/13/19 at 21:00 Aspirin (Ecotrin) 162 mg HS PO Last administered on 10/13/19at 21:12; Start 10/13/19 at 21:00 Montelukast Sodium (Singulair) 10 mg HS PO Last administered on 10/13/19at 21:12; Start 10/13/19 at 21:00 Tamsulosin HCl (Flomax) 0.4 mg DAILY PO ; Start 10/14/19 at 09:00 Hydrochlorothiazide (Microzide) 12.5 mg DAILY PO ; Start 10/14/19 at 09:00 Losartan Potassium (Cozaar) 100 mg DAILY PO ; Start 10/14/19 at 09:00 Magnesium Sulfate 50 ml @ 25 mls/hr 1X ONCE IV Last administered on 10/13/19at 20:01; Start 10/13/19 at 20:00; Stop 10/13/19 at 21:59; Status DC Nitroglycerin (Nitro-Bid Oint) 1 inch Q6HRS TP ; Start 10/14/19 at 00:00 Albuterol/ Ipratropium (Duoneb) 3 ml PRN Q4HRS NEB ; Start 10/13/19 at 21:00; Status UNV Multivitamins (Thera M Plus) 1 tab DAILY PO ; Start 10/18/19 at 09:00 Folic Acid (Folic Acid) 1 mg DAILY PO ; Start 10/18/19 at 09:00 Thiamine Mononitrate (Vitamin B-1) 100 mg DAILY PO ; Start 10/18/19 at 09:00 Lorazepam (Ativan) 1 mg PRN Q1HR PRN PO For CIWA 8-14; Start 10/13/19 at 21:15 Iohexol (Omnipaque 300 Mg/ml) 100 ml STK-MED ONCE .ROUTE ; Start 10/14/19 at 08:23; Stop 10/14/19 at 08:24; Status DC Active Scripts Active Reported Hydrochlorothiazide Tablet (Hydrochlorothiazide) 12.5 Mg Tablet 12.5 Mg PO DAILY Montelukast Sodium Tablet (Montelukast Sodium) 10 Mg Tablet 10 Mg PO HS Ibu (Ibuprofen) 400 Mg Tablet 400 Mg PO HS Aspirin Ec (Aspirin) 81 Mg Tablet.dr 2 Tab PO HS Flomax (Tamsulosin Hcl) 0.4 Mg Cap.er.24h 0.4 Mg PO DAILY LAST DOSE: 10/02/15 BEDTIME NEXT DOSE: 10/03/15 BEDTIME Losartan Potassium 100 Mg Tablet 100 Mg PO DAILY LAST DOSE: 10/03/15 AM NEXT DOSE: 10/04/15 AM Vitals/I & O Vital Sign - Last 24 Hours 10/13/19 10/13/19 10/13/19 10/13/19 14:45 15:19 15:26 15:49 Temp 98.4 98.4 Pulse 60 58 57 54 Resp 20 20 20 B/P (MAP) 159/82 (107) 135/75 (95) 135/75 123/63 (83) Pulse Ox 98 97 98 O2 Delivery Room Air Room Air Room Air 10/13/19 10/13/19 10/13/19 10/13/19 16:26 16:49 17:15 19:00 Temp 97.7 97.8 97.7 97.8 Pulse 56 58 54 56 Resp 20 22 24 18 B/P (MAP) 150/75 (100) 133/69 (90) 153/79 (103) 132/78 (96) Pulse Ox 98 96 97 97 O2 Delivery Room Air Room Air Room Air Room Air 10/13/19 10/13/19 10/13/19 10/13/19 19:55 20:09 22:42 23:25 Temp 97.8 97.8 Pulse 67 40 Resp 18 B/P (MAP) 108/54 (72) Pulse Ox 97 96 O2 Delivery Room Air Room Air Room Air 10/14/19 10/14/19 02:22 07:17 Temp 98.1 97.6 98.1 97.6 Pulse 42 44 Resp 16 18 B/P (MAP) 106/42 (63) 131/69 (89) Pulse Ox 97 97 O2 Delivery Room Air Room Air Intake and Output 10/13/19 10/13/19 10/14/19 14:59 22:59 06:59 Intake Total 0 ml 400 ml Balance 0 ml 400 ml NATY ARIAS MD Oct 14, 2019 08:28
[2019-10-14] MEDS ORDERED: LIDOCAINE 1% PF 2 ML VIAL. ONE (08:36)
--- NOTE | 2019-10-14 09:12 | PDOC2 ---
SHELDON ZHANG RETENTION MANAGER 10/14/19 0911: CARDIAC CONSULT DATE OF CONSULT Date of Consult DATE: 10/14/19 TIME: 08:52 REASON FOR CONSULT Reason for Consult: Angina REFERRING PHYSICIAN Referring Physician: Jinny SOURCE Source: Chart review, Patient HISTORY OF PRESENT ILLNESS HISTORY OF PRESENT ILLNESS This is a pleasant 79 yo male admitted for complains of chest pain. Reports that in the last 6 weeks he has been having dull left sided chest discomfort. also with some mild CARDOZO ongoing for a while now. Yesterday he was weed whacking at around 10 AM and then went inside to get gas and he was already having some chest discomfort at that time then he went outside and sarted manually pulling out some weeds and his chest discomfort continued on and decided to get it checked. Also has SOA at that time but no dizziness, diaphoresis or n/v and his discomfort was nonradiating. He was given ASA and NTG along the way which relieved his symptoms. Its been a while since his last stress test and no known CAD per him. I reviewed his past CT and noted with coronary calcifications and he does have HTN and does have family hx of CAD with his brother who had stents. 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 No recent fever or chills. No symptoms of GERD and no recent falls or injury or past VTE. He is a 90 pk yr smoker and quit in 1970. PAST MEDICAL HISTORY Cardiovascular: HTN, Other (bradycardia) Pulmonary: COPD, Other (Chronic dyspnea) CENTRAL NERVOUS SYSTEM: Other (No pertinent history) GI: Constipation Heme/Onc: No pertinent hx Hepatobiliary: Cholelithiasis, Other (fatty liver infiltration) Psych: Depression (?) Musculoskeletal: low back pain (lumbar stenosis), Osteoarthritis Infectious disease: No pertinent hx ENT: Allergic Rhinitis Renal/: Benign prostatic enlarg., Urinary Incontinence Endocrine: No pertinent hx Dermatology: No pertinent hx PAST SURGICAL HISTORY Past Surgical History: Appendectomy, Cholecystectomy, Tonsillectomy, Other (o cular muscle correction for strabismus) FAMILY HISTORY Family History: Coronary Artery Disease (brother) SOCIAL HISTORY Smoke: Quit (but chews tobacco) ALCOHOL: heavy (binge 7-9 beers at least with some whiskey) Lives: Alone CURRENT MEDICATIONS CURRENT MEDICATIONS Current Medications Medications (Trade) Dose Ordered Sig/Melo Route PRN Reason Start Time Stop Time Status Last Admin Dose Admin Nitroglycerin (Nitro-Bid Oint) 1 inch 1X ONCE TP 10/13/19 15:15 10/13/19 15:16 DC 10/13/19 15:26 Enoxaparin Sodium (Lovenox 40mg Syringe) 40 mg Q24H SQ 10/13/19 21:00 10/13/19 21:13 Aspirin (Ecotrin) 162 mg HS PO 10/13/19 21:00 10/13/19 21:12 Montelukast Sodium (Singulair) 10 mg HS PO 10/13/19 21:00 10/13/19 21:12 Magnesium Sulfate 50 ml @ 25 mls/hr 1X ONCE IV 10/13/19 20:00 10/13/19 21:59 DC 10/13/19 20:01 ALLERGIES ALLERGIES: Coded Allergies: No Known Drug Allergies (Unverified , 09/30/15) ROS Review of System 14 point ROS evaluated with pertinent positives noted per HPI PHYSICAL EXAM General: Alert, Oriented X3, Cooperative, No acute distress HEENT: Atraumatic, Mucous membr. moist/pink Lungs: Clear to auscultation, Normal air movement Heart: Regular rate (SR/SB), Normal S1, Normal S2, Other (2/6 systolic murmur to LLS border) Abdomen: Soft, No tenderness Extremities: No cyanosis, No edema Skin: No breakdown, No significant lesion Neuro: Normal speech, Sensation intact Psych/Mental Status: Mental status NL, Mood NL MUSCULOSKELETAL: Osteoarthritic changes both hands VITALS/I&O VITALS/I&O: Vital Signs Date Time Temp Pulse Resp B/P (MAP) Pulse Ox O2 Delivery O2 Flow Rate FiO2 10/14/19 07:17 97.6 44 18 131/69 (89) 97 Room Air 97.6 I & O 10/13/19 10/13/19 10/14/19 15:00 23:00 07:00 Intake Total 0 ml 400 ml Balance 0 ml 400 ml LABS Lab: Laboratory Tests Test 10/13/19 15:02 10/13/19 18:50 10/13/19 22:00 10/14/19 03:45 White Blood Count 9.3 x10^3/uL (4.0-11.0) Red Blood Count 4.37 x10^6/uL (4.30-5.70) Hemoglobin 15.2 g/dL (13.0-17.5) Hematocrit 42.9 % (39.0-53.0) Mean Corpuscular Volume 98 fL (79-100) Mean Corpuscular Hemoglobin 35 pg (25-35) Mean Corpuscular Hemoglobin Concent 35 g/dL (31-37) Red Cell Distribution Width 13.5 % (11.5-14.5) Platelet Count 238 x10^3/uL (140-400) Neutrophils (%) (Auto) 66 % (31-73) Lymphocytes (%) (Auto) 25 % (24-48) Monocytes (%) (Auto) 8 % (0-9) Eosinophils (%) (Auto) 1 % (0-3) Basophils (%) (Auto) 1 % (0-3) Neutrophils # (Auto) 6.2 x10^3/uL (1.8-7.7) Lymphocytes # (Auto) 2.3 x10^3/uL (1.0-4.8) Monocytes # (Auto) 0.7 x10^3/uL (0.0-1.1) Eosinophils # (Auto) 0.1 x10^3/uL (0.0-0.7) Basophils # (Auto) 0.1 x10^3/uL (0.0-0.2) Prothrombin Time 13.9 SEC (11.7-14.0) Prothrombin Time INR 1.1 (0.8-1.1) Activated Partial Thromboplast Time 25 SEC (24-38) Sodium Level 138 mmol/L (136-145) 139 mmol/L (136-145) Potassium Level 4.0 mmol/L (3.5-5.1) 3.8 mmol/L (3.5-5.1) Chloride Level 104 mmol/L (98-107) 105 mmol/L (98-107) Carbon Dioxide Level 27 mmol/L (21-32) 24 mmol/L (21-32) Anion Gap 7 (6-14) 10 (6-14) Blood Urea Nitrogen 21 mg/dL (8-26) 20 mg/dL (8-26) Creatinine 1.1 mg/dL (0.7-1.3) 1.0 mg/dL (0.7-1.3) Estimated GFR (Cockcroft-Gault) 64.4 71.9 BUN/Creatinine Ratio 19 (6-20) Glucose Level 93 mg/dL (70-99) 94 mg/dL (70-99) Calcium Level 8.7 mg/dL (8.5-10.1) 8.1 mg/dL (8.5-10.1) L Magnesium Level 1.7 mg/dL (1.8-2.4) L 2.0 mg/dL (1.8-2.4) Total Bilirubin 0.4 mg/dL (0.2-1.0) Aspartate Amino Transferase (AST) 25 U/L (15-37) Alanine Aminotransferase (ALT) 37 U/L (16-63) Alkaline Phosphatase 53 U/L (46-116) Troponin I Quantitative < 0.017 ng/mL (0.000-0.055) < 0.017 ng/mL (0.000-0.055) < 0.017 ng/mL (0.000-0.055) QR-Hzs-H-Type Natriuretic Peptide 151 pg/mL (0-449) Total Protein 6.9 g/dL (6.4-8.2) Albumin 3.4 g/dL (3.4-5.0) Albumin/Globulin Ratio 1.0 (1.0-1.7) Thyroid Stimulating Hormone (TSH) 2.154 uIU/mL (0.358-3.74) Triglycerides Level 129 mg/dL (0-150) Cholesterol Level 111 mg/dL (0-200) LDL Cholesterol, Calculated 47 mg/dL (0-100) VLDL Cholesterol, Calculated 26 mg/dL (0-40) Non-HDL Cholesterol Calculated 73 mg/dL (0-129) HDL Cholesterol 38 mg/dL (40-60) L Cholesterol/HDL Ratio 2.9 Laboratory Tests 10/13/19 15:02 Laboratory Tests 10/13/19 15:02 10/14/19 03:45 ECHOCARDIOGRAM ECHOCARDIOGRAM <Conclusion> There is borderline concentric left ventricular hypertrophy. Left ventricle systolic function is low normal. The Ejection Fraction is 50-55%. Transmitral Doppler flow pattern is Grade I-abnormal relaxation pattern. There is no evidence of significant pericardial effusion No mitral stenosis and trace mitral regurgitation Left atrium is of a normal size No aortic stenosis or regurgitation ERight ventricle is of a normal siz No pulmonary hypertension Doppler and Color Flow revealed trace tricuspid regurgitation. The PA pressure was estimated at 26 mmHg. Mild pulmonic regurgitation DATE: 10/04/15 1117 ASSESSMENT/PLAN ASSESSMENT/PLAN 1. Chest pain: compatible with ACS 2. Asymptomatic SB: has been told in the past. EKG revealed incomplete RBBB, unchanged by comparison 3. HTN: controlled 4. 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 Binge alcoholism: 7-9beers with whiskey 2x weekly 6. Family hx of CAD 7. Notable for coronary calcification with CT in 2017 Recommendations 1. TSH, lipids and TTE 2. LHC today, risks and benefits discussed and agreeable to proceed. 3. Will need CT chest and PFTs to further define his lungs moving forward. 4. Will need to curb ETOH consumption. 5. ASA, statin per lipid level. Will continue hme BP regimen pending C findings. CHERELLE RICHEY MD 10/14/19 1327: CARDIAC CONSULT ASSESSMENT/PLAN ASSESSMENT/PLAN Pt. seen and examined. Agree with above GROUP SALES REPRESENTATIVE note. Cath with non-obstructive disease. Plan for medical therapy CTA chest for eval of possible ascending aortic aneurysm. thanks SHELDON ZHANG APRN Oct 14, 2019 09:11 CHERELLE RICHEY MD Oct 14, 2019 13:27
[2019-10-14] MEDS: TAMSULOSIN 0.4 MG CAP.ER.24H. PO SCH (09:19)
[2019-10-14] MEDS: LOSARTAN POTASSIUM 50 MG TABLET. PO SCH (09:20)
[2019-10-14] MEDS: hydroCHLOROthiazide 12.5 MG CAPSULE PO SCH (09:20)
[2019-10-14] MEDS ORDERED: HEPARIN for IV BOLUS 10,000 UNIT/10 ML VIAL. ONE (09:43)
[2019-10-14] MEDS ORDERED: NITROGLYCERIN 200 MCG/2 ML SYRINGE FOR CATH/VASC LAB. ONE (09:43)
[2019-10-14] MEDS ORDERED: MIDAZOLAM HCL/PF 2 MG/2 ML VIAL. ONE (09:43)
[2019-10-14] MEDS ORDERED: fentaNYL PF VIAL 100 MCG/2 ML VIAL ONE (09:43)
[2019-10-14] MEDS ORDERED: VERAPAMIL 5 MG/2 ML VIAL. ONE (09:43)
[2019-10-14] MEDS ORDERED: NITROGLYCERIN 200 MCG/2 ML SYRINGE FOR CATH/VASC LAB. IART ONE (10:00)
[2019-10-14] MEDS ORDERED: HEPARIN for IV BOLUS 10,000 UNIT/10 ML VIAL. IART ONE (10:00)
[2019-10-14] MEDS ORDERED: IOHEXOL 300 MG/ML 100ML VIAL. IART ONE (10:00)
[2019-10-14] MEDS ORDERED: LIDOCAINE 1% PF 2 ML VIAL. INJ ONE (10:00)
[2019-10-14] MEDS ORDERED: fentaNYL PF VIAL 100 MCG/2 ML VIAL IV ONE (10:00)
[2019-10-14] MEDS ORDERED: MIDAZOLAM HCL/PF 2 MG/2 ML VIAL. IV ONE (10:00)
[2019-10-14] MEDS ORDERED: VERAPAMIL 5 MG/2 ML VIAL. IART ONE (10:00)
--- NOTE | 2019-10-14 10:00 | NUR ---
SS following for discharge planning. SS reviewed pt chart and discussed with pt RN. Pt is from home and is currently on room air. ECHO ordered. SS will continue to follow for discharge planning.
[2019-10-14] MEDS ORDERED: IV NORMAL SALINE 1000ML BAG 1,000 ML IV ONE (10:45)
--- NOTE | 2019-10-14 11:03 | CARD ---
MR#: [id number] Date of Study: 10/14/2019 Ordering Physician: CHERELLE RICHEY, Referring Physician: CHERELLE RICHEY, Tech: MIKE SWARTZ RTR APPROVED REPORT Technologist: MIKE SWARTZ RTR Nurse: CYNTHIA LAGUNAS RN Procedure(s) performed: MODERATE SEDATION TIME: 35 MINUTES FLUORO TIME: 6.5 MIN DOSE: 68.8 GYCM2 CONTRAST: 60CC OMNI 300 C, Coronary angiography HISTORY The patient is a 79 year-old male with a history of : tobacco history() , hypertension. INDICATION The indication(s) include : unstable angina . CS Clinical Frailty Scale [facility] Clinical Frailty Scale: Moderately Frail Heart Failure Heart Failure: Yes If Yes, Newly Diagnosed: Yes If Yes, HF Type: Diastolic If Yes, NYHA Class: Class II PROCEDURE NARRATIVE INFORMED CONSENT: After explaining the risks and benefits of the procedure and alternatives, informed consent was obtained. The patient was brought electively to the cardiac catheterization lab. A timeout was performed confi rming the patient's name, date of , procedure, and site of procedure. All necessary personnel w ere wearing the appropriate protective equipment and radiation monitor devices. (See nursing notes for medications administered). ACCESS: The right wrist was sterilely prepped and draped in the usual fashion. The right wrist was infiltrat ed with 1 mL of 2% lidocaine for subcutaneous anesthesia. A 6 Slovenian Terumo glide sheath was inserte d into the right radial artery without difficulty. CORONARY ANGIOGRAPHY: Right and left coronary angiography was performed using a 6Fr JL5 and JR5 catheters. Left ventricul ar end diastolic pressure was obtained with a pigtail catheter and pullback was performed. All tiffany ter exchanges and advancements were performed over a guidewire. CLOSURE: At case completion the right radial sheath was removed and a Terumo radial band was applied with 13 m l of air. COMPLICATIONS: The patient tolerated the procedure well and there were no immediate complications. FINDINGS: HEMODYNAMICS: LVEDP 22 mm Hg No gradient on LV to aortic pullback. AO: 128/78 LEFT VENTRICULOGRAM:Deferred CORONARY ANGIOGRAPHY: LM is a large caliber vessel with normal angiographic appearance. LAD is a large caliber vessel with a long mid 50% stenosis. Ramus is a moderate caliber vessel with normal angiographic apeparance. LCx is a moderate caliber non-dominant vessel with normal angiographic appearance. RCA is a large caliber dominant vessel with mild luminal irregularities. RPDA and RPL are moderate caliber vessels with mild luminal irregularities. *Overall, slow coronary flow noted suggestive of endothelial dysfunction. Conclusion 1. Acute diastolic heart failure. LVEDP 22 mm Hg 2. One vessel moderate coronary disease. 3. Possible ascending aortic aneurysm Recommendations 1. Aggressive medical therapy for coronary disease. 2. CTA of the chest to rule out ascending aortic aneurysm. Signed by : Cherelle Richey, Electronically Approved : 10/14/2019 11:02:41
--- NOTE | 2019-10-14 12:37 | CONS ---
DATE OF CONSULTATION: PULMONARY CONSULTATION ATTENDING PHYSICIAN: Vicente Stearns MD REASON FOR CONSULTATION: Chest pain, dyspnea. HISTORY OF PRESENT ILLNESS: The patient is an 79-year-old male who has been a smoker for 30 years. He quit in 1970. He was brought into the hospital with complaint of chest pain with exertion for the last 6 weeks. The patient states when he rests, the pain goes away. The patient denies any radiation of the pain to his back. He denies any cough, no fever, no chills. He has some mild exertional dyspnea, but he states that he has been short of breath for many months. In fact, he says he is short of breath all the time. He has some postnasal drainage. 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 He said he has some asbestos exposure as well. The patient was seen by Cardiology. He was taken for cardiac catheterization. There was some moderate CAD seen single vessel. There was possible ascending aortic aneurysm reported and LVEDP was 22. I have been asked to see him for further evaluation. Denies any nausea, no vomiting, no diarrhea. No dysuria, no focal weakness. No leg edema. No fever or chills. PAST MEDICAL HISTORY: Significant for history of tobaccoism for 30 years, suspect COPD; history of hypertension and hyperlipidemia. PAST SURGICAL HISTORY: Appendectomy, cholecystectomy and tonsillectomy. FAMILY HISTORY: Dyslipidemia and hypertension. SOCIAL HISTORY: Smoked for 30 years before quitting in 1970. History of heavy alcohol use. ALLERGIES: None. CURRENT MEDICATIONS: Reviewed as listed in the [facility] including Lovenox for DVT prophylaxis and albuterol nebulizer. REVIEW OF SYSTEMS: Twelve-point system obtained. Pertinent positives discussed in my present illness, otherwise noncontributory. All systems that were negative were reviewed as well. ALLERGIES: None. PHYSICAL EXAMINATION: VITAL SIGNS: Reviewed. Blood pressure stable, pulse ox 99% on room air. NECK: Supple. LUNGS: With few crackles posteriorly. CARDIOVASCULAR: With a regular rate and rhythm. ABDOMEN: Soft, nontender. EXTREMITIES: With no pitting edema. LABORATORY DATA: Reviewed. White cell count 9.3, hemoglobin 15.2 and platelets are 238. BUN and creatinine 20 and 1.0. IMPRESSION: 1. Left-sided chest pain for the last 6 weeks along with chronic exertional dyspnea. Status post emergent cardiac catheterization with moderate single vessel coronary artery disease and evidence of increased left ventricular end-diastolic pressure of 22. Symptoms are likely contributed by combination of diastolic heart failure as well as underlying suspected chronic obstructive pulmonary disease. 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 2. Status post emergent catheterization, moderate single vessel CAD and increased LVEDP. 3. Suspected chronic obstructive pulmonary disease. 4. Suspected thoracic aneurysm. RECOMMENDATIONS: 1. Continue p.r.n. oxygen to keep saturation 92 and above. 2. P.r.n. bronchodilators. 3. Lovenox for DVT prophylaxis. 4. CT angiogram as well as a high resolution CT chest has been scheduled for tomorrow. We will follow and evaluate. 5. PFTs as an outpatient. 6. Discussed with RN and Cardiology and will follow along with you. CLAUDY FRIED MD DR: JERRICA/la JOB#: [id number] / [id number] RAHUL
--- NOTE | 2019-10-14 16:52 | CARD ---
MR#: [id number] Date of Study: 10/14/2019 Ordering Physician: SHELDON ZHANG, Referring Physician: SHELDON ZHANG, Tech: Koki Sifuentes APPROVED REPORT EXAM: Two-dimensional and M-mode echocardiogram with Doppler and color Doppler. Other Information Quality : AverageHR: 44bpm INDICATION Chest Pain 2D DIMENSIONS Left Atrium(2D)3.1 (1.6-4.0cm)IVSd1.1 (0.7-1.1cm) Aortic Root(2D)4.0 (2.0-3.7cm)LVDd5.3 (3.9-5.9cm) LVOT Diameter2.2 (1.8-2.4cm)PWd1.3 (0.7-1.1cm) LVDs3.4 (2.5-4.0cm)FS (%) 36.9 % SV90.7 ml Aortic Valve AoV Peak Quentin.143.4cm/sAoV VTI31.9cm AO Peak GR.8.2mmHgLVOT VTI 24.34cm AO Mean GR.4mmHg Mitral Valve MV E Ozzkvnba84.0cm/sMV E Peak Gr.2mmHg MV DECEL [id number] A Liyhcqng22.5cm/s MV E Mean Gr.1mmHgE/A Ratio1.1 TDI Lateral E' P. V7.79cm/sMedial E' P. V7.40cm/s E/Lateral E'9.6E/Medial E'10.1 Tricuspid Valve TR P. Aonjxdye083lu/sRAP ZEITTSAL5tmEp TR Peak Gr.02ptToKPDW15iyWq Pulmonary Vein S1 Qqyltpqo84.0cm/sS2 Gclabxaj83.75cm/s D2 Gkskhnhp91.7cm/sPVa elbbuepx111ncde LEFT VENTRICLE The left ventricle is normal size. There is mild concentric left ventricular hypertrophy. The left ve ntricular systolic function is normal and the ejection fraction is within normal range. The Ejection Fraction is 50-55%. Wall motion consistent with conduction abnormality. Transmitral Doppler flow ranjit paula is Grade II-pseudonormal filling dynamics. RIGHT VENTRICLE The right ventricle is normal size. There is normal right ventricular wall thickness. The right ventr icular systolic function is normal. ATRIA The left atrium is borderline dilated. The right atrium size is normal. The interatrial septum is int act with no evidence for an atrial septal defect or patent foramen ovale as noted on 2-D or Doppler i maging. AORTIC VALVE The aortic valve is normal in structure and function. Doppler and Color Flow revealed no significant aortic regurgitation. There is no significant aortic valvular stenosis. MITRAL VALVE The mitral valve is normal in structure and function. There is no evidence of mitral valve prolapse. There is no mitral valve stenosis. Doppler and Color-flow revealed trace mitral regurgitation. TRICUSPID VALVE The tricuspid valve is normal in structure and function. Doppler and Color Flow revealed trace tricus pid regurgitation with an estimated PAP of 35 mmHg. There is no tricuspid valve stenosis. PULMONIC VALVE The pulmonic valve is not well visualized. Doppler and Color Flow revealed trace pulmonic valvular re gurgitation. GREAT VESSELS The aortic root is normal in size. The ascending aorta is borderline dilated. The IVC is normal in si ze and collapses >50% with inspiration. PERICARDIAL EFFUSION There is no evidence of significant pericardial effusion. Critical Notification Critical Value: No <Conclusion> The left ventricle is normal size. The left ventricular systolic function is normal and the ejection fraction is within normal range. The Ejection Fraction is 50-55%. There is mild concentric left ventricular hypertrophy. Doppler and Color Flow revealed no significant aortic regurgitation. There is no significant aortic valvular stenosis. Doppler and Color-flow revealed trace mitral regurgitation. Doppler and Color Flow revealed trace tricuspid regurgitation with an estimated PAP of 35 mmHg. Signed by : Jorge Alberto Sharp MD Electronically Approved : 10/14/2019 16:51:39
--- NOTE | 2019-10-14 19:11 | RAD ---
BILATERAL LOWER EXTREMITY DUPLEX ARTERY ULTRASOUND Indication: Reason: Claudication / Comparison: None. Procedure: Real-time grayscale, color flow Doppler, and Doppler spectral waveform analysis of the arterial system of the lower extremity is performed. Findings: No arterial occlusion is identified. Biphasic waveforms throughout the right lower extremity. There are no significantly elevated peak systolic velocities. The left dorsalis pedis artery demonstrates triphasic waveform. There are otherwise biphasic waveforms throughout the left lower extremity. No focal elevated peak systolic velocity is identified. There is low velocity flow in the distal left posterior tibial artery. IMPRESSION: No hemodynamically significant stenosis. Electronically signed by: Bradley Perez MD (10/14/2019 7:08 PM) [facility]
--- NOTE | 2019-10-14 20:04 | NUR ---
Pt in bed assessment completed vss poc explained pt denied pain at this time, rt wrist on armboard until a.m. will continue to monitor pt.call light in reach.
[2019-10-14] MEDS: ASPIRIN ENTERIC COATED 81 MG TABLET.DR. PO SCH (20:52)
[2019-10-14] MEDS: MONTELUKAST SODIUM 10 MG TABLET. PO SCH (20:52)
[2019-10-14] MEDS: ENOXAPARIN 40 MG/0.4 ML SYRINGE. SQ SCH (20:53)
[2019-10-15 01:08] LABS: HEMOGLOBIN A1C 5.1 % (4.8-5.6)
[2019-10-15 02:38] VITALS: BP 122/67
[2019-10-15] MEDS: NITROGLYCERIN OINT 1 GM PACKET. TP SCH ×2 (06:00→12:00)
[2019-10-15 06:45] VITALS: BP 132/60
[2019-10-15] MEDS ORDERED: MULT-114 PO (08:06)
[2019-10-15] MEDS ORDERED: IOHEXOL 350 MG/ML 100 ML VIAL. IV ONE (08:30)
[2019-10-15] MEDS ORDERED: CONTRAST GIVEN. MC PRN (08:45)
[2019-10-15] MEDS: LOSARTAN POTASSIUM 50 MG TABLET. PO SCH (09:10)
[2019-10-15] MEDS: hydroCHLOROthiazide 12.5 MG CAPSULE PO SCH (09:10)
[2019-10-15] MEDS: TAMSULOSIN 0.4 MG CAP.ER.24H. PO SCH (09:11)
[2019-10-15 10:11] VITALS: BP 139/79
--- NOTE | 2019-10-15 10:19 | PDOC ---
PULMONARY PROGRESS NOTES Subjective no soa Vitals Vital Signs Date Time Temp Pulse Resp B/P (MAP) Pulse Ox O2 Delivery O2 Flow Rate FiO2 10/15/19 10:11 97.7 55 18 139/79 (99) 97 Room Air 97.7 10/14/19 10:45 2.0 General: Alert, No acute distress Lungs: Crackles (bases) Cardiovascular: S1 Abdomen: Soft Neuro Exam: Alert Extremities: No Edema Skin: Warm Labs Laboratory Tests Test 10/13/19 15:02 10/13/19 18:50 10/13/19 22:00 10/14/19 03:45 White Blood Count 9.3 x10^3/uL (4.0-11.0) Red Blood Count 4.37 x10^6/uL (4.30-5.70) Hemoglobin 15.2 g/dL (13.0-17.5) Hematocrit 42.9 % (39.0-53.0) Mean Corpuscular Volume 98 fL (79-100) Mean Corpuscular Hemoglobin 35 pg (25-35) Mean Corpuscular Hemoglobin Concent 35 g/dL (31-37) Red Cell Distribution Width 13.5 % (11.5-14.5) Platelet Count 238 x10^3/uL (140-400) Neutrophils (%) (Auto) 66 % (31-73) Lymphocytes (%) (Auto) 25 % (24-48) Monocytes (%) (Auto) 8 % (0-9) Eosinophils (%) (Auto) 1 % (0-3) Basophils (%) (Auto) 1 % (0-3) Neutrophils # (Auto) 6.2 x10^3/uL (1.8-7.7) Lymphocytes # (Auto) 2.3 x10^3/uL (1.0-4.8) Monocytes # (Auto) 0.7 x10^3/uL (0.0-1.1) Eosinophils # (Auto) 0.1 x10^3/uL (0.0-0.7) Basophils # (Auto) 0.1 x10^3/uL (0.0-0.2) Prothrombin Time 13.9 SEC (11.7-14.0) Prothromb Time International Ratio 1.1 (0.8-1.1) Activated Partial Thromboplast Time 25 SEC (24-38) Sodium Level 138 mmol/L (136-145) 139 mmol/L (136-145) Potassium Level 4.0 mmol/L (3.5-5.1) 3.8 mmol/L (3.5-5.1) Chloride Level 104 mmol/L (98-107) 105 mmol/L (98-107) Carbon Dioxide Level 27 mmol/L (21-32) 24 mmol/L (21-32) Anion Gap 7 (6-14) 10 (6-14) Blood Urea Nitrogen 21 mg/dL (8-26) 20 mg/dL (8-26) Creatinine 1.1 mg/dL (0.7-1.3) 1.0 mg/dL (0.7-1.3) Estimated GFR (Cockcroft-Gault) 64.4 71.9 BUN/Creatinine Ratio 19 (6-20) Glucose Level 93 mg/dL (70-99) 94 mg/dL (70-99) Hemoglobin A1c 5.1 % (4.8-5.6) Calcium Level 8.7 mg/dL (8.5-10.1) 8.1 mg/dL (8.5-10.1) Magnesium Level 1.7 mg/dL (1.8-2.4) 2.0 mg/dL (1.8-2.4) Total Bilirubin 0.4 mg/dL (0.2-1.0) Aspartate Amino Transf (AST/SGOT) 25 U/L (15-37) Alanine Aminotransferase (ALT/SGPT) 37 U/L (16-63) Alkaline Phosphatase 53 U/L (46-116) Troponin I Quantitative < 0.017 ng/mL (0.000-0.055) < 0.017 ng/mL (0.000-0.055) < 0.017 ng/mL (0.000-0.055) AR-Kyo-N-Type Natriuretic Peptide 151 pg/mL (0-449) Total Protein 6.9 g/dL (6.4-8.2) Albumin 3.4 g/dL (3.4-5.0) Albumin/Globulin Ratio 1.0 (1.0-1.7) Thyroid Stimulating Hormone (TSH) 2.154 uIU/mL (0.358-3.74) Triglycerides Level 129 mg/dL (0-150) Cholesterol Level 111 mg/dL (0-200) LDL Cholesterol, Calculated 47 mg/dL (0-100) VLDL Cholesterol, Calculated 26 mg/dL (0-40) Non-HDL Cholesterol Calculated 73 mg/dL (0-129) HDL Cholesterol 38 mg/dL (40-60) Cholesterol/HDL Ratio 2.9 Medications Active Scripts Medications Dose Route/Sig Max Daily Dose Days Date Category Dose Instructions Multivitamins With Minerals (Multivitamin With Minerals) 1 Each Tablet 1 Tab PO DAILY 30 10/15/19 Reported Hydrochlorothiazide Tablet (Hydrochlorothiazide) 12.5 Mg Tablet 12.5 Mg PO DAILY 10/13/19 Reported Montelukast Sodium Tablet (Montelukast Sodium) 10 Mg Tablet 10 Mg PO HS 10/13/19 Reported Ibu (Ibuprofen) 400 Mg Tablet 400 Mg PO HS 10/13/19 Reported Aspirin Ec (Aspirin) 81 Mg Tablet.dr 2 Tab PO HS 10/13/19 Reported Flomax (Tamsulosin Hcl) 0.4 Mg Cap.er.24h 0.4 Mg PO BID 09/30/15 Reported LAST DOSE: 10/02/15 BEDTIME NEXT DOSE: 10/03/15 BEDTIME Losartan Potassium 100 Mg Tablet 100 Mg PO DAILY 09/30/15 Reported LAST DOSE: 10/03/15 AM NEXT DOSE: 10/04/15 AM Impression . 1. Left-sided chest pain for the last 6 weeks along with chronic exertional dyspnea. Status post emergent cardiac catheterization with moderate single vessel coronary artery disease and evidence of increased left ventricular end-diastolic pressure of 22. Symptoms are likely contributed by combination of diastolic heart failure as well as underlying suspected chronic obstructive pulmonary disease. 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 2. Status post emergent catheterization, moderate single vessel CAD and increased LVEDP. 3. Suspected chronic obstructive pulmonary disease. 4. Suspected thoracic aneurysm. Plan . 1. Continue p.r.n. oxygen to keep saturation 92 and above. 2. P.r.n. bronchodilators. 3. Lovenox for DVT prophylaxis. 4. CT angiogram is P. high resolution CT chest reviewed. early IPF pattern 5. PFTs as an outpatient. 6. Discussed with RN and Cardiology 7. Await CTA to r/o PE f/u with me in office post dc FRIED,CLAUDY U MD Oct 15, 2019 10:19
--- NOTE | 2019-10-15 11:49 | PDOC ---
PROGRESS NOTES Chief Complaint Chief Complaint A/P: Chest pain - no STEMI, negative troponin, but concerning for resolution with rest and NTG for angina. Will cont ASA, consult cardiology. trend troponins, telemetry. NTG prn Dyspnea on exertion - with asbestos exposure history and prior dx of COPD this could be pulmonary related but given his chest pain and improvement with NTG this is just as likely an anginal equivalent COPD - had spirometry, thinks he was told he has more a restrictive pattern. he is concerned about history of asbestos exposure, thinks his dad of mesothelioma High Cholesterol - cont statin, check lipids to risk stratify Hypertension - will cont meds. Monitor HR Hypoimagnesemia - will replace IV Heavy ETOH use - will place on CIWA. Has h/o DUI recently, would not order ETOH in house for history of reckless alcohol use FEN - Cardiac diet PPX - lovenox FULL CODE Dispo - inpatient 2 midnights History of Present Illness History of Present Illness Mr Garces is an 79 yo M w/ PMHx COPD, High Cholesterol, Hypertension who arrives via EMS for c/o chest pain. Pain is substernal, does not radiate. Rated 6 out of 10 constant pressure. The patient reports onset of chest pain with exertion while weed eating his yard just prior to arrival. The patient rested and his chest pain improved. He again exert himself, resulting in recurrent chest pain, again resolved with rest. Associated mild dyspnea. Given ASA 324mg by EMS. On further ROS his dyspnea has been present for 6 to 8 months. He was actually seen 2 weeks ago for a voice change. He was referred to ENT physician. He has yet to go because his driving privileges have temporarily been revoked due to a DUI, he still drinks 4-5 beers daily regularly. He tells me he is more concerned about his lungs he thinks he has asbestosis. He did work construction for quite a long time. He notes during examination that shortly after nitropaste administration he felt his feet were not cold for the first time in years. EKG at 1448. Sinus rhythm. Heart rate 58. Incomplete right bundle branch block morphology. Diffuse nonspecific STT changes. No STEMI. CXR - interstitial thickening at lung bases noted, no acute abnormality Mg 1.7, troponin negative initially. Admitted for further treatment given his anginal symptoms improved by rest and NTG. 10/13: Bradycardic overnight, underwent coronary angiography based on this,. No significant occlusive disease. He still has dyspnea and hoarseness today. Some back pain. CTPA - 1. No aneurysm or dissection is seen involving the thoracic aorta. 2. Findings consistent most likely with UIP. No area of honeycombing is seen. ECHO: The left ventricle is normal size. The left ventricular systolic function is normal and the ejection fraction is within normal range. The Ejection Fraction is 50-55%. There is mild concentric left ventricular hypertrophy. Doppler and Color Flow revealed no significant aortic regurgitation. There is no significant aortic valvular stenosis. Doppler and Color-flow revealed trace mitral regurgitation. Doppler and Color Flow revealed trace tricuspid regurgitation with an estimated PAP of 35 mmHg. Shortness of breath a bit improved, discussed need for reflux management for IPF. No chest pain discussed his negative arterial Dopplers as well. He wishes to go back home [employer] and go back to [employer] and drinking, he has been counseled on drinking less alcohol as this can worsen his reflux and his IPF. Okay for discharge Vitals Vitals Vital Signs Date Time Temp Pulse Resp B/P (MAP) Pulse Ox O2 Delivery O2 Flow Rate FiO2 10/15/19 10:11 97.7 55 18 139/79 (99) 97 Room Air 97.7 10/14/19 10:45 2.0 Physical Exam General: Alert, Oriented X3, Cooperative, No acute distress Heart: Regular rate (SR/SB), Normal S1, Normal S2, Other (2/6 systolic murmur to LLS border) Lungs: Crackles (bases) Abdomen: Soft, No tenderness Extremities: No cyanosis, No edema Skin: No breakdown, No significant lesion Assessment and Plan Assessmemt and Plan Problems Medical Problems: (1) Chest pain Status: Acute Comment Review of Relevant I have reviewed the following items alisson (where applicable) has been applied. Labs Laboratory Tests Test 10/13/19 15:02 10/13/19 18:50 10/13/19 22:00 10/14/19 03:45 White Blood Count 9.3 x10^3/uL (4.0-11.0) Red Blood Count 4.37 x10^6/uL (4.30-5.70) Hemoglobin 15.2 g/dL (13.0-17.5) Hematocrit 42.9 % (39.0-53.0) Mean Corpuscular Volume 98 fL (79-100) Mean Corpuscular Hemoglobin 35 pg (25-35) Mean Corpuscular Hemoglobin Concent 35 g/dL (31-37) Red Cell Distribution Width 13.5 % (11.5-14.5) Platelet Count 238 x10^3/uL (140-400) Neutrophils (%) (Auto) 66 % (31-73) Lymphocytes (%) (Auto) 25 % (24-48) Monocytes (%) (Auto) 8 % (0-9) Eosinophils (%) (Auto) 1 % (0-3) Basophils (%) (Auto) 1 % (0-3) Neutrophils # (Auto) 6.2 x10^3/uL (1.8-7.7) Lymphocytes # (Auto) 2.3 x10^3/uL (1.0-4.8) Monocytes # (Auto) 0.7 x10^3/uL (0.0-1.1) Eosinophils # (Auto) 0.1 x10^3/uL (0.0-0.7) Basophils # (Auto) 0.1 x10^3/uL (0.0-0.2) Prothrombin Time 13.9 SEC (11.7-14.0) Prothromb Time International Ratio 1.1 (0.8-1.1) Activated Partial Thromboplast Time 25 SEC (24-38) Sodium Level 138 mmol/L (136-145) 139 mmol/L (136-145) Potassium Level 4.0 mmol/L (3.5-5.1) 3.8 mmol/L (3.5-5.1) Chloride Level 104 mmol/L (98-107) 105 mmol/L (98-107) Carbon Dioxide Level 27 mmol/L (21-32) 24 mmol/L (21-32) Anion Gap 7 (6-14) 10 (6-14) Blood Urea Nitrogen 21 mg/dL (8-26) 20 mg/dL (8-26) Creatinine 1.1 mg/dL (0.7-1.3) 1.0 mg/dL (0.7-1.3) Estimated GFR (Cockcroft-Gault) 64.4 71.9 BUN/Creatinine Ratio 19 (6-20) Glucose Level 93 mg/dL (70-99) 94 mg/dL (70-99) Hemoglobin A1c 5.1 % (4.8-5.6) Calcium Level 8.7 mg/dL (8.5-10.1) 8.1 mg/dL (8.5-10.1) Magnesium Level 1.7 mg/dL (1.8-2.4) 2.0 mg/dL (1.8-2.4) Total Bilirubin 0.4 mg/dL (0.2-1.0) Aspartate Amino Transf (AST/SGOT) 25 U/L (15-37) Alanine Aminotransferase (ALT/SGPT) 37 U/L (16-63) Alkaline Phosphatase 53 U/L (46-116) Troponin I Quantitative < 0.017 ng/mL (0.000-0.055) < 0.017 ng/mL (0.000-0.055) < 0.017 ng/mL (0.000-0.055) RI-Qhv-I-Type Natriuretic Peptide 151 pg/mL (0-449) Total Protein 6.9 g/dL (6.4-8.2) Albumin 3.4 g/dL (3.4-5.0) Albumin/Globulin Ratio 1.0 (1.0-1.7) Thyroid Stimulating Hormone (TSH) 2.154 uIU/mL (0.358-3.74) Triglycerides Level 129 mg/dL (0-150) Cholesterol Level 111 mg/dL (0-200) LDL Cholesterol, Calculated 47 mg/dL (0-100) VLDL Cholesterol, Calculated 26 mg/dL (0-40) Non-HDL Cholesterol Calculated 73 mg/dL (0-129) HDL Cholesterol 38 mg/dL (40-60) Cholesterol/HDL Ratio 2.9 Medications Current Medications Nitroglycerin (Nitro-Bid Oint) 1 inch 1X ONCE TP Last administered on 10/13/19at 15:26; Start 10/13/19 at 15:15; Stop 10/13/19 at 15:16; Status DC Ondansetron HCl (Zofran) 4 mg PRN Q8HRS PRN IV NAUSEA/VOMITING; Start 10/13/19 at 16:15; Stop 10/13/19 at 18:22; Status DC Ondansetron HCl (Zofran) 4 mg PRN Q4HRS PRN IV NAUSEA/VOMITING; Start 10/13/19 at 18:30 Acetaminophen (Tylenol) 650 mg PRN Q4HRS PRN PO TEMP OVER 100.4F OR MILD PAIN; Start 10/13/19 at 18:30 Albuterol Sulfate (Ventolin Neb Soln) 2.5 mg PRN Q4HRS PRN NEB SHORTNESS OF BREATH; Start 10/13/19 at 18:30 Guaifenesin (Robitussin) 200 mg PRN Q4HRS PRN PO COUGH; Start 10/13/19 at 18:30 Enoxaparin Sodium (Lovenox 40mg Syringe) 40 mg Q24H SQ Last administered on 10/14/19at 20:53; Start 10/13/19 at 21:00 Aspirin (Ecotrin) 162 mg HS PO Last administered on 10/14/19at 20:52; Start 10/13/19 at 21:00 Montelukast Sodium (Singulair) 10 mg HS PO Last administered on 10/14/19at 20:52; Start 10/13/19 at 21:00 Tamsulosin HCl (Flomax) 0.4 mg DAILY PO Last administered on 10/15/19at 09:11; Start 10/14/19 at 09:00 Hydrochlorothiazide (Microzide) 12.5 mg DAILY PO Last administered on 10/15/19at 09:10; Start 10/14/19 at 09:00 Losartan Potassium (Cozaar) 100 mg DAILY PO Last administered on 10/15/19at 09:10; Start 10/14/19 at 09:00 Magnesium Sulfate 50 ml @ 25 mls/hr 1X ONCE IV Last administered on 10/13/19at 20:01; Start 10/13/19 at 20:00; Stop 10/13/19 at 21:59; Status DC Nitroglycerin (Nitro-Bid Oint) 1 inch Q6HRS TP ; Start 10/14/19 at 00:00 Albuterol/ Ipratropium (Duoneb) 3 ml PRN Q4HRS NEB ; Start 10/13/19 at 21:00; Status UNV Multivitamins (Thera M Plus) 1 tab DAILY PO ; Start 10/18/19 at 09:00 Folic Acid (Folic Acid) 1 mg DAILY PO ; Start 10/18/19 at 09:00 Thiamine Mononitrate (Vitamin B-1) 100 mg DAILY PO ; Start 10/18/19 at 09:00 Lorazepam (Ativan) 1 mg PRN Q1HR PRN PO For CIWA 8-14; Start 10/13/19 at 21:15 Iohexol (Omnipaque 300 Mg/ml) 100 ml STK-MED ONCE .ROUTE ; Start 10/14/19 at 08:23; Stop 10/14/19 at 08:24; Status DC Lidocaine HCl (Xylocaine-Mpf 1% 2ml Vial) 2 ml STK-MED ONCE .ROUTE ; Start 10/14/19 at 08:36; Stop 10/14/19 at 08:37; Status DC Heparin Sodium/ Sodium Chloride 1,000 ml @ As Directed STK-MED ONCE .ROUTE ; Start 10/14/19 at 08:36; Stop 10/14/19 at 08:37; Status DC Fentanyl Citrate (Fentanyl 2ml Vial) 100 mcg STK-MED ONCE .ROUTE ; Start 10/14/19 at 09:43; Stop 10/14/19 at 09:43; Status DC Midazolam HCl (Versed) 2 mg STK-MED ONCE .ROUTE ; Start 10/14/19 at 09:43; Stop 10/14/19 at 09:43; Status DC Heparin Sodium (Porcine) (Heparin Sodium) 10,000 unit STK-MED ONCE .ROUTE ; Start 10/14/19 at 09:43; Stop 10/14/19 at 09:43; Status DC Verapamil HCl (Verapamil) 5 mg STK-MED ONCE .ROUTE ; Start 10/14/19 at 09:43; Stop 10/14/19 at 09:43; Status DC Nitroglycerin (Nitroglycerin) 200 mcg STK-MED ONCE .ROUTE ; Start 10/14/19 at 09:43; Stop 10/14/19 at 09:44; Status DC Nitroglycerin (Nitroglycerin) 200 mcg 1X ONCE IART Last administered on 10/14/19at 10:00; Start 10/14/19 at 10:00; Stop 10/14/19 at 10:02; Status DC Verapamil HCl (Verapamil) 2.5 mg 1X ONCE IART Last administered on 10/14/19at 10:00; Start 10/14/19 at 10:00; Stop 10/14/19 at 10:02; Status DC Heparin Sodium (Porcine) (Heparin Sodium) 2,500 unit 1X ONCE IART Last administered on 10/14/19at 10:00; Start 10/14/19 at 10:00; Stop 10/14/19 at 10:02; Status DC Heparin Sodium/ Sodium Chloride (HEPARIN for ARTERIAL LINE FLUSH) 1,000 unit 1X ONCE IART Last administered on 10/14/19at 10:00; Start 10/14/19 at 10:00; Stop 10/14/19 at 10:02; Status DC Heparin Sodium/ Sodium Chloride (HEPARIN for ARTERIAL LINE FLUSH) 1,000 unit 1X ONCE IART Last administered on 10/14/19at 10:00; Start 10/14/19 at 10:00; Stop 10/14/19 at 10:02; Status DC Midazolam HCl (Versed) 2 mg 1X ONCE IV Last administered on 10/14/19at 10:12; Start 10/14/19 at 10:00; Stop 10/14/19 at 10:02; Status DC Fentanyl Citrate (Fentanyl 2ml Vial) 100 mcg 1X ONCE IV Last administered on 10/14/19at 10:12; Start 10/14/19 at 10:00; Stop 10/14/19 at 10:02; Status DC Iohexol (Omnipaque 300 Mg/ml) 100 ml 1X ONCE IART Last administered on 10/14/19at 10:00; Start 10/14/19 at 10:00; Stop 10/14/19 at 10:02; Status DC Lidocaine HCl (Xylocaine-Mpf 1% 2ml Vial) 2 ml 1X ONCE INJ Last administered on 10/14/19at 10:00; Start 10/14/19 at 10:00; Stop 10/14/19 at 10:02; Status DC Sodium Chloride 1,000 ml @ 75 mls/hr 1X ONCE IV Last administered on 10/14/19at 11:47; Start 10/14/19 at 10:45; Stop 10/15/19 at 00:04; Status DC Iohexol (Omnipaque 350 Mg/ml) 90 ml 1X ONCE IV Last administered on 10/15/19at 08:30; Start 10/15/19 at 08:30; Stop 10/15/19 at 08:35; Status DC Info (CONTRAST GIVEN -- Rx MONITORING) 1 each PRN DAILY PRN MC SEE COMMENTS; Start 10/15/19 at 08:45; Stop 10/17/19 at 08:44 Active Scripts Active Reported Multivitamins With Minerals (Multivitamin With Minerals) 1 Each Tablet 1 Tab PO DAILY 30 Days Hydrochlorothiazide Tablet (Hydrochlorothiazide) 12.5 Mg Tablet 12.5 Mg PO DAILY Montelukast Sodium Tablet (Montelukast Sodium) 10 Mg Tablet 10 Mg PO HS Ibu (Ibuprofen) 400 Mg Tablet 400 Mg PO HS Aspirin Ec (Aspirin) 81 Mg Tablet.dr 2 Tab PO HS Flomax (Tamsulosin Hcl) 0.4 Mg Cap.er.24h 0.4 Mg PO BID LAST DOSE: 10/02/15 BEDTIME NEXT DOSE: 10/03/15 BEDTIME Losartan Potassium 100 Mg Tablet 100 Mg PO DAILY LAST DOSE: 10/03/15 AM NEXT DOSE: 10/04/15 AM Vitals/I & O Vital Sign - Last 24 Hours 10/14/19 10/14/19 10/14/19 10/14/19 12:00 12:30 13:00 13:30 Pulse 42 46 44 48 Resp 20 18 20 B/P (MAP) 149/57 (87) 146/79 (101) 135/70 (91) 156/50 (85) Pulse Ox 96 96 97 96 O2 Delivery Room Air Room Air Room Air Room Air 10/14/19 10/14/19 10/14/19 10/14/19 14:00 15:26 18:24 19:35 Temp 98.2 98.2 Pulse 46 40 48 Resp 20 14 B/P (MAP) 137/56 (83) 123/65 (84) 145/65 (91) Pulse Ox 98 96 O2 Delivery Room Air Room Air Room Air Room Air 10/14/19 10/15/19 10/15/19 10/15/19 22:48 02:38 06:45 08:00 Temp 98.2 97.8 98.1 98.2 97.8 98.1 Pulse 47 44 42 Resp 18 18 18 B/P (MAP) 145/66 (92) 122/67 (85) 132/60 (84) Pulse Ox 96 95 97 O2 Delivery Room Air Room Air Room Air Room Air 10/15/19 10/15/19 09:10 10:11 Temp 97.7 97.7 Pulse 47 55 Resp 18 B/P (MAP) 132/60 139/79 (99) Pulse Ox 97 O2 Delivery Room Air Intake and Output 10/14/19 10/14/19 10/15/19 15:00 23:00 07:00 Intake Total 180 ml 250 ml 0 ml Output Total 1400 ml 300 ml Balance 180 ml -1150 ml -300 ml NATY ARIAS MD Oct 15, 2019 11:49
--- NOTE | 2019-10-15 14:05 | RAD ---
High-resolution CT scan of the chest without contrast to include a CTA of the chest with contrast 10/15/2019 CLINICAL HISTORY: Shortness of breath. Concern for thoracic aortic aneurysm. TECHNIQUE: Unenhanced contiguous, 5 mm axial sections were obtained through the chest. Additionally high-resolution images through the chest were obtained during inspiration and expiration. 1 mm reconstructed axial images were obtained. After the intravenous administration of 90 cc of Omnipaque 300, contiguous, 0.625 mm axial sections were obtained chest. 3 mm reconstructed axial and 3-D MIP sagittal and coronal reconstructed images were obtained. One or more of the following individualized dose reduction techniques were utilized for this study: 1. Automated exposure control. 2. Adjustment of the mA and/or kV according to patient size. 3. Use of iterative reconstruction technique. FINDINGS: Comparison is made to a portable chest radiograph dated 10/13/2019. The unenhanced images of the chest demonstrate scattered atherosclerotic calcification of the thoracic aorta. Fairly extensive coronary artery calcifications are seen. Calcified right hilar lymph nodes are seen which measure 3 mm to 1.3 cm in size. The high-resolution images through the chest demonstrate peripheral reticular opacities throughout both lungs which likely reflect UIP. No area of honeycombing is seen. Mild bullous changes are seen involving the left upper lobe, laterally. No bronchiectasis is seen. A 6 mm calcified granuloma is seen involving the right lower lobe. No area of consolidation is noted. No pneumothorax or pleural effusion is seen. On the CTA images the thoracic aorta is tortuous but tapers normally. Mild scattered atherosclerotic plaque formation is seen. No aneurysm or dissection is seen. The origins of the great vessels is somewhat obscured due to patient and/or respiratory motion and beam hardening artifact. There appears to be a common origin of the brachiocephalic and left common carotid artery. This is a normal variation. Kinking of the proximal brachiocephalic artery is noted. No hemodynamically significant stenosis is seen. No filling defect is seen within the visualized pulmonary arteries. The descending thoracic aorta tapers normally. Images through the upper abdomen demonstrate decreased attenuation of the liver parenchyma consistent with fatty infiltration. Degenerative changes are seen throughout the thoracic spine. IMPRESSION: 1. No aneurysm or dissection is seen involving the thoracic aorta. 2. Findings consistent most likely with UIP. No area of honeycombing is seen. Electronically signed by: Kana Ying MD (10/15/2019 2:02 PM) [id number]
[2019-10-15 14:10] VITALS: BP 135/66
[2019-10-15] MEDS ORDERED: PANTOPRAZOLE 40 MG TABLET.DR. PO ONE (14:45)
--- NOTE | 2019-10-15 14:49 | NUR ---
SS following for discharge planning. SS reviewed pt chart and discussed with pt RN. Pt is currently on room air. Currently awaiting Cardiology to sign off. Possible discharge to home today. SS will continue to follow for discharge planning.
--- NOTE | 2019-10-15 15:04 | PDOC3 ---
Discharge Summary Visit Information Date of Admission: Oct 14, 2019 Date of Discharge: Oct 15, 2019 Admitting Diagnosis: Shortness of breath Final Diagnosis Problems Medical Problems: (1) Chest pain Status: Acute Brief Hospital Course Allergies Allergies Coded Allergies Type Severity Reaction Last Updated Verified No Known Drug Allergies 09/30/15 No Vital Signs Vital Signs Date Time Temp Pulse Resp B/P (MAP) Pulse Ox O2 Delivery O2 Flow Rate FiO2 10/15/19 14:10 97.5 56 18 135/66 (89) 96 Room Air 97.5 10/14/19 10:45 2.0 Lab Results Laboratory Tests Test 10/13/19 18:50 10/13/19 22:00 10/14/19 03:45 Troponin I Quantitative < 0.017 ng/mL (0.000-0.055) < 0.017 ng/mL (0.000-0.055) Sodium Level 139 mmol/L (136-145) Potassium Level 3.8 mmol/L (3.5-5.1) Chloride Level 105 mmol/L (98-107) Carbon Dioxide Level 24 mmol/L (21-32) Anion Gap 10 (6-14) Blood Urea Nitrogen 20 mg/dL (8-26) Creatinine 1.0 mg/dL (0.7-1.3) Estimated GFR (Cockcroft-Gault) 71.9 Glucose Level 94 mg/dL (70-99) Calcium Level 8.1 mg/dL (8.5-10.1) Magnesium Level 2.0 mg/dL (1.8-2.4) Triglycerides Level 129 mg/dL (0-150) Cholesterol Level 111 mg/dL (0-200) LDL Cholesterol, Calculated 47 mg/dL (0-100) VLDL Cholesterol, Calculated 26 mg/dL (0-40) Non-HDL Cholesterol Calculated 73 mg/dL (0-129) HDL Cholesterol 38 mg/dL (40-60) Cholesterol/HDL Ratio 2.9 Brief Hospital Course Mr Garces is an 79 yo M w/ PMHx COPD, High Cholesterol, Hypertension who arrives via EMS for c/o chest pain. Pain is substernal, does not radiate. Rated 6 out of 10 constant pressure. The patient reports onset of chest pain with exertion while weed eating his yard just prior to arrival. The patient rested and his chest pain improved. He again exert himself, resulting in recurrent chest pain, again resolved with rest. Associated mild dyspnea. Given ASA 324mg by EMS. On further ROS his dyspnea has been present for 6 to 8 months. He was actually seen 2 weeks ago for a voice change. He was referred to ENT physician. He has yet to go because his driving privileges have temporarily been revoked due to a DUI, he still drinks 4-5 beers daily regularly. He tells me he is more concerned about his lungs he thinks he has asbestosis. He did work construction for quite a long time. He notes during examination that shortly after nitropaste administration he felt his feet were not cold for the first time in years. EKG at 1448. Sinus rhythm. Heart rate 58. Incomplete right bundle branch block morphology. Diffuse nonspecific STT changes. No STEMI. CXR - interstitial thickening at lung bases noted, no acute abnormality Mg 1.7, troponin negative initially. Admitted for further treatment given his anginal symptoms improved by rest and NTG. 10/13: Bradycardic overnight, underwent coronary angiography based on this,. No significant occlusive disease. He still has dyspnea and hoarseness today. Some back pain. CTPA - 1. No aneurysm or dissection is seen involving the thoracic aorta. 2. Fi ndings consistent most likely with UIP. No area of honeycombing is seen. ECHO: The left ventricle is normal size. The left ventricular systolic function is normal and the ejection fraction is within normal range. The Ejection Fraction is 50-55%. There is mild concentric left ventricular hypertrophy. Doppler and Color Flow revealed no significant aortic regurgitation. There is no significant aortic valvular stenosis. Doppler and Color-flow revealed trace mitral regurgitation. Doppler and Color Flow revealed trace tricuspid regurgitation with an estimated PAP of 35 mmHg. Shortness of breath a bit improved, discussed need for reflux management for IPF. No chest pain discussed his negative arterial Dopplers as well. He wishes to go back home [employer] and go back to gardening and drinking, he has been counseled on drinking less alcohol as this can worsen his reflux and his IPF. Okay for discharge Problem list: Chest pain - no STEMI, negative troponin, but concerning for resolution with rest and NTG for angina. Will cont ASA, consult cardiology. trend troponins, telemetry. NTG prn Dyspnea on exertion - with asbestos exposure history and prior dx of COPD this could be pulmonary related but given his chest pain and improvement with NTG this is just as likely an anginal equivalent COPD - had spirometry, thinks he was told he has more a restrictive pattern. he is concerned about history of asbestos exposure, thinks his dad of mesothelioma High Cholesterol - cont statin, check lipids to risk stratify Hypertension - will cont meds. Monitor HR Hypoimagnesemia - will replace IV Heavy ETOH use - will place on CIWA. Has h/o DUI recently, would not order ETOH in house for history of reckless alcohol use IPF - on CT chest looks like UIP. Greater than 30 minutes spent on d/c home Discharge Information Condition at Discharge: Improved Follow Up: Weeks (1) Disposition/Orders: D/C to Home Scheduled Aspirin (Aspirin Ec) 81 Mg Tablet., 2 TAB PO HS for preventative, #90 Ref 3 (Reported) Entered as Reported by: AMY YANEZ on 10/13/191816 Last Taken: Unknown Dose on 10/13/19 Last Action: Continued on 10/13/191821 by NATY ARIAS MD Hydrochlorothiazide (Hydrochlorothiazide Tablet) 12.5 Mg Tablet, 12.5 MG PO DAILY for DIURETIC, Ref 0 (Reported) Entered as Reported by: AMY YANEZ on 10/13/191816 Last Taken: Unknown Dose on 10/13/19 Last Action: Converted on 10/13/191821 by NATY ARIAS MD Ibuprofen (Ibu) 400 Mg Tablet, 400 MG PO HS for back, (Reported) Entered as Reported by: AMY YANEZ on 10/13/191816 Last Taken: Unknown Dose on 10/13/19 Last Action: New Order on 10/13/191816 by AMY YANEZ Losartan Potassium (Losartan Potassium) 100 Mg Tablet, 100 MG PO DAILY, (Reported) LAST DOSE: 10/03/15 AM NEXT DOSE: 10/04/15 AM Entered as Reported by: SABRINA BORJAS on 09/30/151834 Last Taken: Unknown Dose on 10/13/19 Last Action: Converted on 10/13/191821 by NATY ARIAS MD Montelukast Sodium (Montelukast Sodium Tablet ) 10 Mg Tablet, 10 MG PO HS for FOR ASTHMA, Ref 0 (Reported) Entered as Reported by: AMY YANEZ on 10/13/191816 Last Taken: Unknown Dose on 10/13/19 Last Action: Continued on 10/13/191821 by NATY ARIAS MD Multivitamin With Minerals (Multivitamins With Minerals) 1 Each Tablet, 1 TAB PO DAILY for for 30 Days, #30 Ref 0 (Reported) Entered as Reported by: Yudith Hernandez on 10/15/19805 Last Taken: 1 on Unknown Date & Time Last Action: New Order on 10/15/19805 by Yudith Hernandez Tamsulosin Hcl (Flomax) 0.4 Mg Cap.er.24h, 0.4 MG PO BID for , (Reported) LAST DOSE: 10/02/15 BEDTIME NEXT DOSE: 10/03/15 BEDTIME Entered as Reported by: SABRINA BORJAS on 09/30/151835 Last Taken: Unknown Dose on 10/13/19 Last Action: Edited on 10/15/19805 by Yudith Hernandez Justicifation of Admission Dx: Justifications for Admission: Justification of Admission Dx: Yes Angina: [place] Worsening of Sym NATY ARIAS MD Oct 15, 2019 15:04
[2019-10-15] MEDS ORDERED: PANT40TA77 PO (15:06)
--- NOTE | 2019-10-15 17:05 | NUR ---
Discharge Note: [facility] Discharge instructions and discharge home medications reviewed with Patient and a copy given. All questions have been answered and understanding verbalized. The following instructions and handouts were given: DISCHARGE INSTRUCTIONS, S/P CATH INSTRUCTIONS,PRESCRIPTION TO PHARMACY, FOLLOW UP INSTRUCTIONS. Discontinued lines and drains: PERIPHERAL IV DISCONTINUED, DRESSING CLEAN, DRY AND INTACT intact. Patient discharged to HOME with SON via AMBULATION
--- NOTE | 2019-10-15 23:31 | PDOC ---
CARDIOLOGY PROGRESS NOTE SUBJECTIVE: No new events overnight. Patient sitting up talking to son at bedside. No syncope or palpitations. Eating ok. OBJECTIVE: Vital Signs/I&O: Vital Signs Date Time Temp Pulse Resp B/P (MAP) Pulse Ox O2 Delivery O2 Flow Rate FiO2 10/15/19 14:10 97.5 56 18 135/66 (89) 96 Room Air 97.5 10/14/19 10:45 2.0 I & O 10/14/19 10/14/19 10/15/19 15:00 23:00 07:00 Intake Total 180 ml 250 ml 0 ml Output Total 1400 ml 300 ml Balance 180 ml -1150 ml -300 ml Objective: GEN.: No apparent distress. Alert and oriented. HEENT: Head is normocephalic, atraumatic NECK: Supple. LUNGS: Clear to auscultation. HEART: RRR, S1, S2 present. Peripheral pulses intact ABDOMEN: Soft, nontender. Positive bowel sounds. EXTREMITIES: Without any cyanosis. NEUROLOGIC: Normal speech, normal tone PSYCHIATRIC: Normal affect, normal mood. SKIN: No ulcerations CURRENT MEDICATIONS: Current Medications Medications (Trade) Dose Ordered Sig/Melo Route PRN Reason Start Time Stop Time Status Last Admin Dose Admin Iohexol (Omnipaque 350 Mg/ml) 90 ml 1X ONCE IV 10/15/19 08:30 10/15/19 08:35 DC 10/15/19 08:30 ASSESSMENT: 1. Dyspnea/chest pain 2. HTN 3. Alcohol abuse 4. Pulm Fibrosis PLAN: 1. No significant cardiac pathology noted. Continue risk factor modification. Ok to DC from CV standpoint. Thanks. Justicifation of Admission Dx: Justifications for Admission: Justification of Admission Dx: Yes Angina: Cres[place] Worsening of Sym CHERELLE RICHEY MD Oct 15, 2019 23:31
[2019-10-16] MEDS ORDERED: PANTOPRAZOLE 40 MG TABLET.DR. PO SCH (07:30)
[2019-10-18] MEDS ORDERED: THIAMINE 100 MG TABLET. PO SCH (09:00)
[2019-10-18] MEDS ORDERED: MULTIVITAMIN with MINERAL TABLET. PO SCH (09:00)
[2019-10-18] MEDS ORDERED: FOLIC ACID 1 MG TABLET. PO SCH (09:00)
== END 2019-10-15 16:35 | disposition home or self-care (01) | DRG 286 ==
LOC: ER 14:44 → 2 SOUTH 16:10 → OBSVTOIN 10-14 13:09
PROVIDERS: ADMIT Internal Medicine; ATTEND Internal Medicine
PROC: 4A023N7 Measurement of Cardiac Sampling and Pressure, Left Heart, Percutaneous Approach (ICD-10-PCS; principal; 2019-10-14)
PROC: B2111ZZ Fluoroscopy of Multiple Coronary Arteries using Low Osmolar Contrast (ICD-10-PCS; 2019-10-14)
DX: I25.119 Atherosclerotic heart disease of native coronary artery with unspecified angina pectoris (principal); I50.31 Acute diastolic (congestive) heart failure; E78.00 Pure hypercholesterolemia, unspecified; R00.1 Bradycardia, unspecified; E78.5 Hyperlipidemia, unspecified; F10.20 Alcohol dependence, uncomplicated; Z77.090 Contact with and (suspected) exposure to asbestos; K21.9 Gastro-esophageal reflux disease without esophagitis; J44.9 Chronic obstructive pulmonary disease, unspecified; I11.0 Hypertensive heart disease with heart failure; I45.10 Unspecified right bundle-branch block; J84.10 Pulmonary fibrosis, unspecified; K59.00 Constipation, unspecified; M48.061 Spinal stenosis, lumbar region without neurogenic claudication; M54.9 Dorsalgia, unspecified; E83.42 Hypomagnesemia; Z82.5 Family history of asthma and other chronic lower respiratory diseases; Z82.49 Family history of ischemic heart disease and other diseases of the circulatory system; Z83.49 Family history of other endocrine, nutritional and metabolic diseases; Z72.0 Tobacco use; Z90.49 Acquired absence of other specified parts of digestive tract
CPT/HCPCS: 36415; 71045; 71250; 71275; 80048; 80053; 80061; 83036; 83735; 83880; 84443; 84484; 85025; 85610; 85730; 93005; 93306; 93458; 93923; 99152; 99153; C1769; C1892; G0378; G0379; J1644; J1650; J2250; J3010; J3475; J3490; J7030; Q9967; 99285-25

== ENCOUNTER → 2019-12-20 | Outpatient (CLI) | payer OTHER, MEDICAID ==
[~2019-12-20] MED LIST changes: +ASPI-886 PO; +HYDR12.58 PO; +IBUP400T99 PO; +MONT10TA49 PO; +MULT-114 PO; +PANT40TA77 PO
== END | disposition home or self-care (01) ==
LOC: LAB 14:28
PROVIDERS: ATTEND Internal Medicine Gastroenterology
DX: Z01.818 Encounter for other preprocedural examination (principal); Z11.59 Encounter for screening for other viral diseases; R13.10 Dysphagia, unspecified
CPT/HCPCS: U0003-CS

== ENCOUNTER → 2019-12-23 | Day surgery (SDC) | payer OTHER, MEDICAID ==
[~2019-12-23] MED LIST changes: +LIDOCAINE 1% PF 2 ML VIAL. ONE; +LIDOCAINE 2% PF 5 ML VIAL. ONE; +PROPOFOL 10 MG/ML (20ML) VIAL. IV ONE
[2019-12-23] MEDS: IV RINGERS,LACTATED 1000ML 1,000 ML IV SCH ×2 (07:00→11:49)
[2019-12-23 13:20] VITALS: BP 143/73
--- NOTE | 2019-12-28 14:07 | PATHOLOGY ---
[facility] Accession Number: [id number] . 01 Material submitted: . esophagus - ESOPHAGEAL BX . 01 Clinical history: . DYSPHAGIA, R/O BARRETTS . 02 Diagnosis: Esophagus, endoscopic biopsy: - Esophageal squamous and gastric cardia mucosa with features of reflux esophagitis. - Negative for intestinal metaplasia, dysplasia, and malignancy. (MLK/db; 12/27/2019) LBQ 12/28/2019 1306 Local . 02 Electronically signed: . Neyda Zepeda MD, Pathologist NPI- [id number] . 01 Gross description: . The specimen is received in formalin, labeled "Mili Jacobs, Dong, esophageal BX" and consists of multiple fragments of pink-roberts tissue measuring 0.8 x 0.4 x 0.2 cm in aggregate which are entirely submitted in A1. (SDY; 12/24/2019) SYU/SYU 12/24/2019 1659 Local . 02 Pathologist provided ICD-10: R13.10 . 02 CPT . 190953 Specimen Comment: A courtesy copy of this report has been sent to [phone], [phone] Specimen Comment: [id number] Specimen Comment: Report sent to / DR FERGUSON Performed at: 01 [facility] [address], [place], [place] [id number] MD Margarito Bonilla MD Phone: [phone] Performed at: 02 [facility] [place] [address] [place], [place] [id number] MD Vinny Recinos MD Phone: [phone]
== END | disposition home or self-care (01) ==
LOC: ENDOS 11:05
PROVIDERS: ATTEND Internal Medicine Gastroenterology
DX: R13.10 Dysphagia, unspecified (principal); K21.0 Gastro-esophageal reflux disease with esophagitis; K22.2 Esophageal obstruction; K29.70 Gastritis, unspecified, without bleeding; K31.89 Other diseases of stomach and duodenum; F41.9 Anxiety disorder, unspecified; F32.9 Major depressive disorder, single episode, unspecified; I10 Essential (primary) hypertension; M19.90 Unspecified osteoarthritis, unspecified site; Z79.899 Other long term (current) drug therapy; Z98.890 Other specified postprocedural states; Z90.49 Acquired absence of other specified parts of digestive tract; Z87.891 Personal history of nicotine dependence
CPT/HCPCS: 43239; 43450; J2704; 88305; J3490

== ENCOUNTER → 2020-07-12 | Outpatient (CLI) | payer OTHER, MEDICAID ==
[2019-12-23 13:20] VITALS: BP 143/73
[~2020-07-12] MED LIST changes: -LIDOCAINE 1% PF 2 ML VIAL. ONE; -LIDOCAINE 2% PF 5 ML VIAL. ONE; -PROPOFOL 10 MG/ML (20ML) VIAL. IV ONE
--- NOTE | 2020-07-12 11:37 | RAD ---
CT of the chest without contrast 07/12/2020 INDICATION: Pulmonary fibrosis. COMPARISON STUDY: High-resolution chest CT October 15, 2019 TECHNIQUE: Multidetector CT imaging of the chest was performed without the administration of IV contr ast. FINDINGS: The heart is mildly enlarged. Coronary calcification noted. Scattered small mediastinal lym ph nodes are noted without evidence of pathologically enlarged adenopathy. Calcified lymph nodes in t he right hilum are similar to comparison study. There is no pneumothorax or pleural effusion. Subpleu ral reticular opacities are noted throughout the bilateral lungs, most prominent in the lung bases. A definitive honeycombing is identified. The appearance is essentially unchanged from comparison exam. Limited visualization of the upper abdomen is unremarkable. No acute osseous changes are identified. IMPRESSION: 1. Subpleural reticular opacities, similar to comparison study which may represent UIP or early pulmo nary fibrosis. The overall appearance is stable 2. No acute changes from prior exam are identified CT DOSING PQRS STATEMENT: One or more of the following individualized dose reduction techniques were utilized for this examinat ion: 1. Automated exposure control 2. Adjustment of the mA and/or kV according to patient size 3. Use of iterative reconstruction technique Electronically signed by: Tristin Castro MD (07/12/2020 11:35 AM) [id number]
== END ==
LOC: CT 11:22
PROVIDERS: ATTEND Internal Medicine Critical Care Medicine
DX: J84.10 Pulmonary fibrosis, unspecified (principal); I51.7 Cardiomegaly
CPT/HCPCS: 71250